=== PATIENT | female | born 1975 | race Caucasian/White ===

== ENCOUNTER 2021-06-08 12:12 | Outpatient (REF) | payer MEDICARE, MEDICAID, SELFPAY ==
--- NOTE | ~2021-06-08 | XR_ITS ---
EXAMINATION: RIGHT HAND. RIGHT SHOULDER. CLINICAL INFORMATION: Pain in right fingers. COMPARISON: None TECHNIQUE: 3 views right hand and 4 views right shoulder. FINDINGS: RIGHT HAND: There is no visible acute fracture, dislocation or subluxation seen. The joint spaces are maintained normal. RIGHT SHOULDER: There is no visible acute fracture, dislocation or subluxation seen. No bony abnormality. The soft tissues are normal. XR/XR hand RT 2V IMPRESSION: Unremarkable right hand exam. Unremarkable right shoulder exam.
--- NOTE | ~2021-06-08 | XR_ITS ---
EXAMINATION: RIGHT HAND. RIGHT SHOULDER. CLINICAL INFORMATION: Pain in right fingers. COMPARISON: None TECHNIQUE: 3 views right hand and 4 views right shoulder. FINDINGS: RIGHT HAND: There is no visible acute fracture, dislocation or subluxation seen. The joint spaces are maintained normal. RIGHT SHOULDER: There is no visible acute fracture, dislocation or subluxation seen. No bony abnormality. The soft tissues are normal. XR/XR shoulder RT min 2V IMPRESSION: Unremarkable right hand exam. Unremarkable right shoulder exam.
== END 2021-06-08 12:13 | disposition home or self-care (01) ==
LOC: HO.HMGCX 12:12
PROVIDERS: PCP Internal Medicine; Visit Provider Internal Medicine
DX: Z13.89 Encounter for screening for other disorder (principal)
CPT/HCPCS: 73030; 73120

== ENCOUNTER 2021-10-11 11:00 | Outpatient (RCR) | payer MEDICARE, MEDICAID, SELFPAY ==
--- NOTE | 2021-06-22 14:03 | MHC.PT.EP ---
[facility] [place] Office [place] Office [place] Office [address] [place] [address] [phone] F: [phone] F: [phone] F: [phone] F: [phone] Physical Therapy Plan of Care Date of Evaluation: Date of Surgery: Diagnosis: pain in R shoulder. Assessment: Patient is a 45 year old R handed female who presents with s/s consistent with R shoulder pain. 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 Patient past medical history includes anxiety and depression. Current impairments include pain, ROM, strength, posture, activity tolerance and functional mobility. Functional limitations include decreased ability to reach, lift, carry, dress, wash, sleep, and perform weight bearing activities.. Patient is motivated with good rehab potential. Skilled PT will address impairments and functional limitations in order to achieve goals. Frequency and Duration: The patient will be seen 2x/week for 5 weeks Short Term Goals: I with HEP - 2 weeks Flex/abd 150 or better pain free - 3 weeks Able to work pain free - 3 weeks improved postural awareness - 3 weeks Intermediate Goals: SPADI 24/130 or better - 5 weeks full AROM pain free - 5 weeks strength 4/5 grossly or better - 5 weeks Treatment Plan: Modalities to reduce pain, spasms and effusion. Manual therapy to restore motion and function. Therapeutic exercise to improve strength and flexibility. Neuromuscular re-education for posture and balance. Therapeutic activities to return to functional activities of daily living. Electronically signed by: Olegario Marti PT Please sign and return to therapist. Thank you for your referral.
--- NOTE | 2021-11-11 08:43 | MHC.PT.DC ---
[facility] [place] Office [place] Office [place] Office [address] Ernestina Jacobs [address] [phone] F: [phone] F: [phone] F: [phone] F: [phone] Physical Therapy Discharge Report Diagnosis: pain in R shoulder. Date of Surgery: Date of Evaluation: 06/22/21 Date of Discharge: 10/12/21 Treatments to Date: 15 Cancellations to Date: 0 No Shows to Date: 0 Discharge Status: Achieved Goals Improved Function Independent with HEP Discharge Summary: Pt conts with some limitation. Still with pain at specific ROM. Pt is I with HEP. Pt uses CP and tylenol when pain is worse. Discussed home TENS unit fro pain management. Pt DC today Electronically signed by: Olegario Marti, PT Please sign and return to therapist. Thank you for your referral.
== END 2021-11-11 08:43 | disposition home or self-care (01) ==
LOC: HO.PTCHIC 11:00
PROVIDERS: PCP Internal Medicine; Visit Provider Internal Medicine
DX: M25.511 Pain in right shoulder (principal)
CPT/HCPCS: 97110; 97140; 97150; 97161

== ENCOUNTER 2022-04-01 10:39 | Outpatient (REF) | payer MEDICARE, MEDICAID, SELFPAY ==
[2022-04-01 13:39] LABS: Appearance Urine HAZY; Color Urine YELLOW; Glucose Urine UA >=1000 MG/DL (NEG); Leukocyte Esterase Urine 2+ (NEG); Nitrite Urine NEG (NEG); UACC Culture Trigger YES; Urine Blood TRACE (NEG); Urine Ketones 5 MG/DL (NEG); Urine Protein NEG (NEG-TRACE)
[2022-04-01 13:55] LABS: Bacteria Urine TRACE /LPF; RBC Urine 0-2 /HPF (0); Squamous Epithelial Cell Urine 1+ /LPF; Trichomonas Urine NOTED
== END 2022-04-01 10:40 | disposition home or self-care (01) ==
LOC: HO.HMGCLNP 10:39
PROVIDERS: Visit Provider Internal Medicine
DX: R30.0 Dysuria (principal)
CPT/HCPCS: 81001; 87086; 87147

== ENCOUNTER 2024-11-12 12:28 | Outpatient (AMB) | payer MEDICARE, MEDICAID, SELFPAY ==
[2024-11-12 12:45] VITALS: BP 124/76; PULSE 78; RESP 20; TEMP 37.3; O2SAT 98; BMI 37.9
--- NOTE | 2024-11-12 12:45 | MHC.PC.OV ---
Vital Signs 11/12/24 12:45 Height 5 ft 6 in Weight 235 lb BMI 37.9 BP 124/76 Blood Pressure Location Lt brachial Position Sitting Respiration 20 Pulse 78 Pulse Source Pulse Oximeter Temp 99.2 F Temp Source Oral Pulse Oximetry (%) 98 Oxygen Delivery Method Room Air Intake Visit Reasons: sore R foot Allergies Sulfa (Sulfonamide Antibiotics) Allergy (Verified 11/12/24 13:07) had reaction when she was a little kid does not remember Medication List - Last Reconciled 11/12/24 by Francisca Bryant MD blood-glucose sensor (Dexcom G6 Sensor device) As directed blood-glucose transmitter (Dexcom G6 Transmitter device) As directed bupropion HCl XL (Wellbutrin XL) 300 mg PO QAM clonazepam 0.5 mg PO DAILY fluoxetine 60 mg PO DAILY fluticasone propionate 50 mcg/actuation 1 spray intranasal DAILY insulin glargine U-300 conc (Toujeo SoloStar U-300 Insulin) 2 units subcut DAILY insulin lispro (Humalog U-100 Insulin) 1 sliding scale dose subcut USEASDIRECTD levothyroxine (Synthroid) 75 mcg PO DAILY methylphenidate HCl mg PO DAILY simvastatin 10 mg PO DAILY trazodone 300 mg PO DAILY Tobacco use date assessed: 11/12/24 Dental Screening Dental Screen Date: 11/12/24 Did you have a dental visit in the last 12 months?: Yes Did you have a dental problem in the last 6 months where you did not have access to dental care?: No Was dental information given to patient?: Patient has dentist HPI HPI Comments History of Present Illness Details Patient presents for physical. She follows up with Endocrinology for type 1 diabetes and reports poorly controlled due to noncompliance with ADA diet and lack of exercise. Patient is established with a psychiatrist and a therapist for chronic depression and anxiety and has been taking medications. [facility] Medical History (Updated 11/12/24 @ 13:35 by Francisca Bryant MD) Shoulder pain, right Pain of right thumb Acquired hypothyroidism Anxiety disorder, unspecified Major depressive disorder, single episode, unspecified Type 1 diabetes Surgical History History of ankle surgery Family History Father No problems noted. Mother Mental health disorder Substance use disorder Social History Housing: Apartment Patient Tobacco Use Status: Never used Tobacco e-Cigarette/Vaping Use: Never Used service: No Current occupational status: employed Cognitive needs: No Hearing needs: No Vision needs: No Questionnaire PHQ-9 Over the last 2 weeks, how often have you been bothered by any of the following problems? 1. Little interest or pleasure in doing things: nearly every day 2. Feeling down, depressed, or hopeless: nearly every day 3. Trouble falling or staying asleep, or sleeping too much: more than half the days 4. Feeling tired or having little energy: nearly every day 5. Poor appetite or overeating: nearly every day 6. Feeling bad about yourself - or that you are a failure or have let yourself or your family down: more than half the days 7. Trouble concentrating on things, such as reading the newspaper or watching television: nearly every day 8. Moving or speaking so slowly that other people could have noticed. Or the opposite - being so fidgety or restless that you have been moving around a lot more than usual: not at all 9. Thoughts that you would be better off or of hurting yourself in some way: several days Total score: 20 Depression Screening Interpretation: Positive (established with psychiatry) Depression Screening Follow-up: Existing condition and In treatment Depression Screening Done: Yes 34731 - PHQ-9 Billing: Yes Source: Developed by Drs. Goran Vyas, Mercedes Higgins, Dereje Baldwin and colleagues, with an educational ashok from [employer]. Thrive Questionnaire Date Thrive assessed: 11/12/24 I am a: Patient What is your living situation today?: I have a steady place to live Within the past 12 months, did the food you bought not last and you didn't have the money to get more?: Never true Within the past 12 months, did you worry whether your food would run out before you got money to buy more?: Never true Do you have trouble paying for medicines?: No Do you have trouble getting transportation to medical appointments?: Yes Do you have trouble paying your heating and electricity bill?: No Do you have trouble taking care of your child, family member or friend?: No Do you have trouble with day-to-day activities such as bathing, preparing meals, shopping, managing finances, etc.?: No Are you currently unemployed and looking for a job?: No Are you interested in more education?: Yes Please select the resources that you would like help with: None Currently or been in a relationship where the following occur: No concerns reported THRIVE Score: 1 AUDIT C Alcohol Use Questionnaire (AUDIT-C) 1. How often do you have a drink containing alcohol?: Never 3. How often do you have six or more drinks on one occasion?: Never Total Score: 0 ABI-7 AMB Questionnaire ABI-7 Date ABI - 7 assessed: 11/12/24 Feeling nervous, anxious, or on edge: 3 = Nearly every day Not being able to stop or control worryin = More than half the days Worrying too much about different things: 2 = More than half the days Trouble relaxin = More than half the days Being so restless that it is hard to sit still: 0 = Not at all Becoming easily annoyed or irritable: 2 = More than half the days Feeling afraid as if something awful might happen: 1 = Several days Total ABI-7 score (0-4 normal; 5-9 mild; 10-14 moderate; 15-21 severe): 12 Source: Developed by Drs. Goran Vyas, Mercedes Higgins, Dereje Baldwin and colleagues, with an educational ashok from [employer]. ABI-7 Assessment Billing ABI-7 Assessment Tool: ABI-7 Assessment 43410 Review of Systems Const All systems reviewed & are unremarkable except as noted in HPI and below Reports no additional complaints Eyes Reports no additional complaints ENT Reports no additional complaints Card Reports no additional complaints Resp Reports no additional complaints GI Reports no additional complaints Reports no additional complaints Musc Reports no additional complaints Physical exam (Primary Care) Vital Signs: Last Vital Signs Temp 99.2 F 11/12/24 12:45 Pulse 78 11/12/24 12:45 Resp 20 11/12/24 12:45 BP 124/76 11/12/24 12:45 Pulse Ox 98 11/12/24 12:45 Oxygen Delivery Method Room Air 11/12/24 12:45 BMI result Body Mass Index 37.9 Tobacco/Smoking Status: Tobacco use Status Tobacco use date assessed 11/12/24 11/12/24 13:04 Patient Tobacco Use Status Never used Tobacco 11/12/24 13:11 e-Cigarette/Vaping Use Never Used 11/12/24 13:11 PHQ-9: PHQ-9 Score PHQ-9: Total score 20 11/12/24 13:29 Depression Screening Interpretation: Positive (established with psychiatry) Depression Screening Follow-up: Existing condition and In treatment Thrive Assessment: Date of Thrive Assessment Date Thrive assessed 11/12/24 11/12/24 13:12 Currently or been in a relationship where the following occur: No concerns reported Const General: no acute distress HENMT Head: Yes normal to inspection Ears: hearing grossly normal bilaterally General nose exam: Normal external nose present Face and sinus: Yes normal facial exam Mouth: Normal oral and palatal mucosa present Throat: Yes posterior oropharynx normal Eyes General: appearance normal, both eyes and all related structures Neck Neck: Yes no lymphadenopathy and Yes supple Resp Effort & Inspection: normal respiratory effort Auscultation: clear to auscultation bilaterally Cardio Rhythm: regular rhythm Heart sounds: S1 normal heart sound present and S2 normal heart sound present GI Inspection: Yes normal to inspection Palpation (GI): Soft to palpation Percussion: Yes normal to percussion Auscultation: normal bowel sounds Coding Level of Care Code Est Pt Prev Care 40-64y(44640) Diagnoses Type 1 diabetes E10.9 Major depressive disorder, single episode, unspecified F32.9 Annual physical exam Z00.00 Additional Codes ABI-7 Assessment Billing - ABI-7 Assessment Tool: ABI-7 Assessment 24803 ([id number]) PHQ-9 - 10731 - PHQ-9 Billing: Yes ([id number]) Assessment & Plan Assessment & Plan (1) Type 1 diabetes: Comment: f/u with charles Swanson Code(s): E10.9 - Type 1 diabetes mellitus without complications Category: Medical Plan: 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 She will obtain results of her most recent blood work and for to our office (2) Major depressive disorder, single episode, unspecified: [facility]): F32.9 - Major depressive disorder, single episode, unspecified Category: Medical Plan: Follow-up with a psychiatrist and a counselor continue current medications (3) Annual physical exam: Code(s): Z00.00 - Encounter for general adult medical examination without abnormal findings Category: Medical Plan: Well-balanced diet regular physical activity weight loss discussed with the patient she was advised to return for fasting blood work mammogram will be scheduled. Patient declined colonoscopy but agreed to Cologuard. She will call her director epidemiology to schedule pelvic exam appointment Orders: Orders Comprehensive [place]. Panel Fast Today E10.9 - Type 1 diabetes mellitus without complications, Z00.00 - Encounter for general adult medical examination without abnormal findings Complete Blood Count Auto Diff Today E10.9 - Type 1 diabetes mellitus without complications, Z00.00 - Encounter for general adult medical examination without abnormal findings MM screening mammo BI Today Z12.31 - Encounter for screening mammogram for malignant neoplasm of breast Lipid Panel Today E10.9 - Type 1 diabetes mellitus without complications, Z00.00 - Encounter for general adult medical examination without abnormal findings Microalbumin, Random (w Creat) Today E10.9 - Type 1 diabetes mellitus without complications, Z00.00 - Encounter for general adult medical examination without abnormal findings Vitamin D 25-OH Total Today E10.9 - Type 1 diabetes mellitus without complications, Z00.00 - Encounter for general adult medical examination without abnormal findings Hemoglobin A1c Today E10.9 - Type 1 diabetes mellitus without complications, Z00.00 - Encounter for general adult medical examination without abnormal findings Referrals Cologuard Test Z12.11 - Encounter for screening for malignant neoplasm of colon, Z12.12 - Encounter for screening for malignant neoplasm of rectum
--- OUTSIDE RECORDS SUMMARY | 2024-11-12 15:17 | XMS_ITS | Patient Health Record ---
Author Organization [facility] Address [address] [place] [address] Care Team Providers Care Relationship Advisor Name Role Phone Jie Larsen Unavailable [phone] Reason For Referral No Information Medications Medication SIG (Take, Route, Fr equency, Duration) Notes Start Date End Date Status Adderall 20MG 1 ORAL twice daily for -3 [facility] 12/10/2013 Active Calcium 600MG 1 ORAL daily for - [facility] 12/10/2013 Active Fish Oil 1200MG 1 ORAL daily for -3 [facility] 12/10/2013 Active FLUoxetine HCl 60MG 1 ORAL daily for -3 [facility] 12/10/2013 Active Multivitamins 1 ORAL daily for -3 [facility] 12/10/2013 Active Synthroid 175 MCG 1 ORAL daily for - [facility] 12/10/2013 Active traZODone HCl 150MG 1 ORAL at bedtime for - [facility] 12/10 Active Problems Problem Type SNOMED Code ICD Code Onset Dates Problem Status W/U Status Risk Notes Problem Hypothyroidism (13526023) Unspecified hypothyroidism (244.9) Active confirmed Major Problem Type I diabetes mellitus without complication (022193527) Diabetes mellitus without mention of complication, type I [juvenile type], not stated as uncontrolled (250.01) Active confirmed Major Problem Premenstrual tension syndrome (44895451) Premenstrual tension syndromes (625.4) Active confirmed Diag Problem Atypical glandular cells on cervical Papanicolaou smear (229546562) Abnormal glandular Papanicolaou smear of cervix (795.00) Active confirmed Major Problem Gynecological examination normal (582311940611804) Routine gynecological examination (V72.31) Active confirmed Major Plan Of Treatment No Information Insurance Providers Payer Name Payer Address Payer Phone Subscriber Number Group Number Insured Name Patient Relationship to Insured Coverage Start Date Coverage End Date MEDICARE [address] [place], [place] [id number] MOIRA VALDEZ Self - patient is the insured
--- OUTSIDE RECORDS SUMMARY | 2024-11-12 15:17 | XMS_ITS | Data Portability ---
Author Organization [facility], , [facility] Address [address] [place] [address] Care Team Providers Care Life Management Teacher Name Role Phone SAMIRA SCHMITT Building Carpenter Helper BENNY GUNN Wick Tender EDER ANDREW Primary Care Provider [phone] Assessment Encounter Date Assessment Date Assessment LastModified by Organization Details LastModified Time 09/07/2022 09/07/2022 T1DM on basal bolus with CGM (Dexcom). Started at age 2. A1c generally in target but has had fairly wide fluctuations in glucose values (hpo to hyper) 2020: More frequent lows but also hyperglyemia. Hypothyroid on Synthroid replacement Anxiety- adjusting meds. Depression- more of a problem lately (12.). 11 Levemir at HS CGM shows lows o/n but some highs then too. Using novalog at meals.. CGM report DATES: 08/08-09/06/22 AVG GLU: 135 +/- 62 with CV= 45.8% Time in range: 62% Time high: 23% Time low: 15% GENERAL PATTERN: Average glucose is 110 between MN and 2:30AM. Values increase to 150mg/dl at 5:30AM and to 180mg/dl at 8AM. There is a decrease in average glucose to 150mg/dl at 8:30AM arriving at 110mg/dl at 2:30PM. Values slowly rise to 150mg/dl by 9:30PM and then decrease back to 110mg/dl by 11:30PM. INDIVIDUAL DAYS: Multiple instances of highs in morning (6-7AM), midday (3PM) and also overnight (1-3AM). There are also numerous prolonged episodes of hypoglycemia occurring mostly overnight with shorter episodes scattered at other times of day. IMPRESSION: Sub-optimal control of diabetes with 62 % of time in range but a high percent time in hypoglycemia and some time (23%) in hyperglycemia. RECOMMENDATION: Decrease long-acting insulin to reduce risk of hypoglycemia and review dosing for meals to allow proper coverage without resulting in post-meal hypoglycemia. PRIOR CGM: 08/17/21-09/16/21 IMPRESSION: Highly variable control throughout control although overall, pt. is in range over 60% of the time. Most severe hyperglycemia after midnight. Lows tend to occur after meals with pattern of highs resulting in lows that result in rebound highs. RECOMMENDATION: Address hyperglycemia beginning around MN. May be able to use less short acting at other times of day. PREVIOUS CGM: 02/09-03/10/21: Highs overnight- mostly from rebound hypoglycemia but occasionally without. PREVIOUS CGM:07/28/20- 08/26/20 IMPRESSION: Moderately well controlled diabetes wtih 59 % of time in range. Of concern is the 13% of time that is spent in hypoglcyemia. Hyperglycemia largely occurs overnight and in response to either borderline hypoglycemia or more well-defined hypoglycemia after dinner. Given the borerline level of some of the lows, this may represent overcompensation for fear of impending severe hypoglcyemia. RECOMMENDATION: Choices are to either have a post-dinner snack or reduce insulin (likely small changes to short-acting and long-acting). Additional efforts to discuss responses to hypoglycemia would be advised. Enhanced Provider time spent performing enhanced activities which may include, but are not limited to: reviewing tests, obtaining and/or reviewing patient history; ordering medications, test or procedures; EMR documentation; communication with patient, family, caregiver(s), VNA; pre-visit prep time communication with specialists, ER staff. Time spent: 39 (minutes) 09/07 but added complexity due hypoglycemia. Patient checks sugars more than 4x per day and injects insulin four times daily. Makes adjustments in insulin doses based on blood sugar values. There is a current and ongoing significant concern for the this patient's risk for severe hypoglycemia causing serious health consequences. Complexity increased by use of insulin, documented hypoglycemia. 09/07: Labs pending. CGM shows lows o/n. Change levemir 11 -> 8 units at HS. Try to use bit more novolog at dinner (6-8 units). Continue 7 units at bkfst (BG go up after caffeine). upload CGM and review in about early 11/09. [email or web address] Not available 09/07/2022 22:15:26 02/15/2023 02/15/2023 T1DM on basal bolus with CGM (Dexcom). Started at age 2. A1c generally in target but has had fairly wide fluctuations in glucose values (hpo to hyper) 2020: More frequent lows but also hyperglyemia. Hypothyroid on Synthroid replacement Anxiety- adjusting meds. Depression- more of a problem lately (12.). 11 Levemir at HS CGM shows lows o/n but some highs then too. Using Novolog at meals.. CGM report DATES: 12/11/22- 02/09/23 AVG GLU: 137 mg/dl +/- 66; CV= 48% Time in range: 66% was 57% Time high: 22% was 31% Time low: 12% was 12% CGM use= 51%; was 31% GENERAL PATTERN: While average value is within the target range throughout the 24 hour period, there are frequent times with excess hypoglycemia and periods of hyperglycemia. Lows tend to be more frequent overnight (MN till 9AM) with slightly less but still frequent trends after lunch and after dinner. However, high values over 250 are common after breakfast and, to a lesser degree, after dinner. In general, average values decrease from MN until 3AM and then rise to about 170mg/dl by noon. Values decrease to 120-130 by 3PM and hover in that range for rest of day. INDIVIDUAL DAYS: Lows overnight are noted both with and without prior hyperglycemia. During day, lows tend to follow mealtimes but not with excessively high prior hyperglycemia. The times when glucose values rise very high do not correspond with the lowest glucose values or most prolonged hypoglycemia. IMPRESSION: Sub-optimal control of diabetes due more to excess amounts of hypoglycemia than hyperglycemia. Average time in range is 66%. Lows are often present overnight and also following mealtimes, suggesting excess doses for meals rather than excess corrections. High values occur intermittently, mostly after breakfast. RECOMMENDATION: Review long acting dose to avoid lows overnight. Some increase may be needed around breakfast. First priority would be to lower the frequency of hypoglycemia. PRIOR CGM: IMPRESSION: Sub-optimal control of diabetes with 62 % of time in range but a high percent time in hypoglycemia and some time (23%) in hyperglycemia. RECOMMENDATION: Decrease long-acting insulin to reduce risk of hypoglycemia and review dosing for meals to allow proper coverage without resulting in post-meal hypoglycemia. PRIOR CGM: 08/17/21-09/16/21 IMPRESSION: Highly variable control throughout control although overall, pt. is in range over 60% of the time. Most severe hyperglycemia after midnight. Lows tend to occur after meals with pattern of highs resulting in lows that result in rebound highs. RECOMMENDATION: Address hyperglycemia beginning around MN. May be able to use less short acting at other times of day. PREVIOUS CGM: 02/09-03/10/21: Highs overnight- mostly from rebound hypoglycemia but occasionally without. PREVIOUS CGM:07/28/20- 08/26/20 IMPRESSION: Moderately well controlled diabetes wtih 59 % of time in range. Of concern is the 13% of time that is spent in hypoglcyemia. Hyperglycemia largely occurs overnight and in response to either borderline hypoglycemia or more well-defined hypoglycemia after dinner. Given the borerline level of some of the lows, this may represent overcompensation for fear of impending severe hypoglcyemia. RECOMMENDATION: Choices are to either have a post-dinner snack or reduce insulin (likely small changes to short-acting and long-acting). Additional efforts to discuss responses to hypoglycemia would be advised. Enhanced Provider time spent performing enhanced activities which may include, but are not limited to: reviewing tests, obtaining and/or reviewing patient history; ordering medications, test or procedures; EMR documentation; communication with patient, family, caregiver(s), VNA; pre-visit prep time communication with specialists, ER staff. Time spent: 42 (minutes) 03/09 but added complexity due hypoglycemia (in office). Patient checks sugars more than 4x per day and injects insulin four times daily. Makes adjustments in insulin doses based on blood sugar values. There is a current and ongoing significant concern for the this patient's risk for severe hypoglycemia causing serious health consequences. Complexity increased by use of insulin, documented hypoglycemia. 09/07: Labs pending. CGM shows lows o/n. Change levemir 11 -> 8 units at HS. Try to use bit more novolog at dinner (6-8 units). Continue 7 units at bkfst (BG go up after caffeine). 03/09 decrease levemir by 3 units- [email or web address] Not available 03/13/2023 09:07:14 09/13/2023 09/13/2023 T1DM on basal bolus with CGM (Dexcom). Started at age 2. A1c generally in target but has had fairly wide fluctuations in glucose values (hpo to hyper) 2020: More frequent lows but also hyperglyemia. Hypothyroid on Synthroid replacement Anxiety- adjusting meds. Depression- more of a problem lately (09.06). 11 Levemir at HS CGM shows lows o/n but some highs then too. Using Novolog at meals.. CGM report DATES: 08/08/23-09/06/23; tracings are available for 20 out of 30 days (67%) AVG GLU: 156 with standard deviation of 78 mg/DL and coefficient of variation = 50.2% Time in range: 56% Time high: 32% Time low: 12% GENERAL PATTERN: Average glucose is out of range between 4 AM and 9 AM. The average at midnight is approximately 100-110 mg/DL and gradually increases to approximately 150 x 3 a.m. with a sharper increase peaking at 250 at 6:30 AM. Values then come down and returned to approximately 120 x 11 a.m. After a brief rise to 150-160 by 12:30 PM, values decrease and hover around 140-150 from 3 PM until 5:30 PM. Values then rise to 150-160 from 7-9 PM before decreasing back towards 110-120 by midnight. It should be noted that there is a wide variability of glucose values throughout the 24 hour period but this is most significant between 2 AM and 10 AM. In addition, there are are significant percentages of hypoglycemia through most of the hours between 1 PM and 5 AM. INDIVIDUAL DAYS: Multiple instances of hyperglycemia occurring overnight. While many of these are associated with low values between midnight and 2 AM, there are other instances of no hypoglycemia with a fairly rapid rise in glucose values. Other instances of hypoglycemia are seen in the afternoon and evening, but several of these also peer to be reactive to bouts of hypoglycemia. Hypoglycemia is noted on multiple occasions with prolonged episodes of 2-3 hours most commonly occurring overnight. However, there are additional instances occurring in the late afternoon and evening. IMPRESSION: Poor control of diabetes as evidenced by only 56% of the time spent in range but, importantly, 14% of the time is spent with values over 250 and 12% of the time is spent with hypoglycemia. Numerous episodes of hypoglycemia overnight which seem out of proportion to the hypoglycemic events during that interval. Additional hypoglycemia is noted in the afternoon and evening. RECOMMENDATION: Given frequency of hypoglycemia, first priority would be to reduce the frequency and duration of these events. Lowering basal insulin may be helpful. However, additional increases in short acting insulin at meals may be necessary. Careful review of nighttime eating habits if hypoglycemia overnight persist. PRIOR CGM: 12/11/22- 02/09/23 IMPRESSION: Sub-optimal control of diabetes due more to excess amounts of hypoglycemia than hyperglycemia. Average time in range is 66%. Lows are often present overnight and also following mealtimes, suggesting excess doses for meals rather than excess corrections. High values occur intermittently, mostly after breakfast. RECOMMENDATION: Review long acting dose to avoid lows overnight. Some increase may be needed around breakfast. First priority would be to lower the frequency of hypoglycemia. PRIOR CGM: IMPRESSION: Sub-optimal control of diabetes with 62 % of time in range but a high percent time in hypoglycemia and some time (23%) in hyperglycemia. RECOMMENDATION: Decrease long-acting insulin to reduce risk of hypoglycemia and review dosing for meals to allow proper coverage without resulting in post-meal hypoglycemia. PRIOR CGM: 08/17/21-09/16/21 IMPRESSION: Highly variable control throughout control although overall, pt. is in range over 60% of the time. Most severe hyperglycemia after midnight. Lows tend to occur after meals with pattern of highs resulting in lows that result in rebound highs. RECOMMENDATION: Address hyperglycemia beginning around MN. May be able to use less short acting at other times of day. PREVIOUS CGM: 02/09-03/10/21: Highs overnight- mostly from rebound hypoglycemia but occasionally without. PREVIOUS CGM:07/28/20- 08/26/20- Moderately well controlled diabetes wtih 59 % of time in range. 13% of time that is spent in hypoglcyemia. Enhanced Provider time spent performing enhanced activities which may include, but are not limited to: reviewing tests, obtaining and/or reviewing patient history; ordering medications, test or procedures; EMR documentation; communication with patient, family, caregiver(s), VNA; pre-visit prep time communication with specialists, ER staff. Time spent: 39 (minutes) 09/08 but added complexity due hypoglycemia (in office). Patient checks sugars more than 4x per day and injects insulin four times daily. Makes adjustments in insulin doses based on blood sugar values. There is a current and ongoing significant concern for the this patient's risk for severe hypoglycemia causing serious health consequences. Complexity increased by use of insulin, documented hypoglycemia. 09/07: Labs pending. CGM shows lows o/n. Change levemir 11 -> 8 units at HS. Try to use bit more novolog at dinner (6-8 units). Continue 7 units at bkfst (BG go up after caffeine). 03/09 decrease levemir by 3 units- 09/08: Decrease levemir from 7 units to 5 units (10PM) to reduce lows. Then will want to see if highs persisting overnight. F/U ENDO RN in 4-6 weeks. [email or web address] Not available 09/15/2023 12:48:56 01/10/2024 01/10/2024 T1DM on basal bolus with CGM (Dexcom). Started at age 2. A1c generally in target but has had fairly wide fluctuations in glucose values (hpo to hyper) 2020: More frequent lows but also hyperglyemia. Hypothyroid on Synthroid replacement Anxiety- adjusting meds. Depression- more of a problem lately (.). 11 Levemir at HS CGM shows lows o/n but some highs then too. Using Novolog at meals.. CGM report DATES: 12/12/23-01/10/24 AVG GLU: 156 mg/DL with standard deviation of 72 mg/DL and coefficient of variation = 46.4%. CGM was active 98.8% of the time. Time in range: 56% Time high: 34% Time low: 10% GENERAL PATTERN: Average glucose is in the target range except for 7 AM until noon. The average at midnight is approximately 110-120 and decreases down towards about 100 x 2 a.m. After that, the average increases steadily and reach his 180 by 1 PM but then continues up to approximately 220-230 between 830 and 11 AM. After that, values decrease towards 130-140 between 2 PM and 4 PM and then decrease to a level of 100 at 6:30 PM. Values then increase to approximately 140-150 between 9 PM 11 PM before decreasing back towards 120 by midnight. There is significant amounts of hypoglycemia overnight but also in the afternoon (1-4 PM) and evening (5 PM until midnight). There is significant variability throughout much of the 24 hour interval but particularly between 8 PM and 3 AM and even more so between 3 AM and 10 AM. INDIVIDUAL DAYS: Of significance, there are multiple hypoglycemic events noted; most of these occur in the afternoon and evening but some can persist overnight. Many of these are fairly prolonged. While some of these seem to occur in response to hyperglycemia there are many others are occurring after either minimal hyperglycemia or without evidence of prior hyperglycemia. Elevated glucose values tend to occur more often in the morning and in the evening. Morning values tend to be more prolonged and with higher values exceeding 250-300 mg/DL. Some hypoglycemia occurs following hypoglycemia. IMPRESSION: Suboptimal control of diabetes with 56% of the time spent in the target range. Significant hypoglycemia is noted and occurs in the afternoon and evening but can persist overnight. Hyperglycemia tends to happen more in the morning. Some hyperglycemia appears to be rebound from hypoglycemia. RECOMMENDATION: High-priority to reducing hypoglycemia. A reduction and long-acting insulin is appropriate. A review of dietary choices and preferences for breakfast may also be worthwhile. PRIOR: 08/08/23-09/06/23; tracings are available for 20 out of 30 days (67%) IMPRESSION: Poor control of diabetes as evidenced by only 56% of the time spent in range but, importantly, 14% of the time is spent with values over 250 and 12% of the time is spent with hypoglycemia. Numerous episodes of hypoglycemia overnight which seem out of proportion to the hypoglycemic events during that interval. Additional hypoglycemia is noted in the afternoon and evening. RECOMMENDATION: Given frequency of hypoglycemia, first priority would be to reduce the frequency and duration of these events. Lowering basal insulin may be helpful. However, additional increases in short acting insulin at meals may be necessary. Careful review of nighttime eating habits if hypoglycemia overnight persist. PRIOR CGM: 12/11/22- 02/09/23 IMPRESSION: Sub-optimal control of diabetes due more to excess amounts of hypoglycemia than hyperglycemia. Average time in range is 66%. Lows are often present overnight and also following mealtimes, suggesting excess doses for meals rather than excess corrections. High values occur intermittently, mostly after breakfast. RECOMMENDATION: Review long acting dose to avoid lows overnight. Some increase may be needed around breakfast. First priority would be to lower the frequency of hypoglycemia. PRIOR CGM: IMPRESSION: Sub-optimal control of diabetes with 62 % of time in range but a high percent time in hypoglycemia and some time (23%) in hyperglycemia. RECOMMENDATION: Decrease long-acting insulin to reduce risk of hypoglycemia and review dosing for meals to allow proper coverage without resulting in post-meal hypoglycemia. PRIOR CGM: 08/17/21-09/16/21 IMPRESSION: Highly variable control throughout control although overall, pt. is in range over 60% of the time. Most severe hyperglycemia after midnight. Lows tend to occur after meals with pattern of highs resulting in lows that result in rebound highs. RECOMMENDATION: Address hyperglycemia beginning around MN. May be able to use less short acting at other times of day. PREVIOUS CGM: 02/09-03/10/21: Highs overnight- mostly from rebound hypoglycemia but occasionally without. PREVIOUS CGM:07/28/20- 08/26/20- Moderately well controlled diabetes wtih 59 % of time in range. 13% of time that is spent in hypoglcyemia. Patient checks sugars more than 4x per day and injects insulin four times daily. Makes adjustments in insulin doses based on blood sugar values. There is a current and ongoing significant concern for the this patient's risk for severe hypoglycemia causing serious health consequences. Complexity increased by use of insulin, documented hypoglycemia. 09/07: Labs pending. CGM shows lows o/n. Change levemir 11 -> 8 units at HS. Try to use bit more novolog at dinner (6-8 units). Continue 7 units at bkfst (BG go up after caffeine). 03/09 decrease levemir by 3 units- 09/08: Decrease levemir from 7 units to 5 units (10PM) to reduce lows. Then will want to see if highs persisting overnight. F/U ENDO RN in 4-6 weeks. 01/08: Decrease long-acting. changing levemir to lantus. [email or web address] Not available 01/11/2024 11:59:42 07/24/2024 07/24/2024 T1DM on basal bolus with CGM (Dexcom). Started at age 2. A1c generally in target but has had fairly wide fluctuations in glucose values (hpo to hyper) 2020: More frequent lows but also hyperglyemia. Hypothyroid on Synthroid replacement Anxiety- adjusting meds. Depression- more of a problem lately (09.06). 11 Levemir at HS CGM shows lows o/n but some highs then too. Using Novolog at meals.. CGM report 08/10: No CGM today PRIOR CGM: 08/08/23-09/06/23; IMPRESSION: Poor control of diabetes as evidenced by only 56% of the time spent in range but, importantly, 14% of the time is spent with values over 250 and 12% of the time is spent with hypoglycemia. Numerous episodes of hypoglycemia overnight which seem out of proportion to the hypoglycemic events during that interval. Additional hypoglycemia is noted in the afternoon and evening. RECOMMENDATION: Given frequency of hypoglycemia, first priority would be to reduce the frequency and duration of these events. Lowering basal insulin may be helpful. However, additional increases in short acting insulin at meals may be necessary. Careful review of nighttime eating habits if hypoglycemia overnight persist. PRIOR CGM: 12/11/22- 02/09/23 IMPRESSION: Sub-optimal control of diabetes due more to excess amounts of hypoglycemia than hyperglycemia. Average time in range is 66%. Lows are often present overnight and also following mealtimes, suggesting excess doses for meals rather than excess corrections. High values occur intermittently, mostly after breakfast. RECOMMENDATION: Review long acting dose to avoid lows overnight. Some increase may be needed around breakfast. First priority would be to lower the frequency of hypoglycemia. PRIOR CGM: IMPRESSION: Sub-optimal control of diabetes with 62 % of time in range but a high percent time in hypoglycemia and some time (23%) in hyperglycemia. RECOMMENDATION: Decrease long-acting insulin to reduce risk of hypoglycemia and review dosing for meals to allow proper coverage without resulting in post-meal hypoglycemia. PRIOR CGM: 08/17/21-09/16/21 IMPRESSION: Highly variable control throughout control although overall, pt. is in range over 60% of the time. Most severe hyperglycemia after midnight. Lows tend to occur after meals with pattern of highs resulting in lows that result in rebound highs. RECOMMENDATION: Address hyperglycemia beginning around MN. May be able to use less short acting at other times of day. PREVIOUS CGM: 02/09-03/10/21: Highs overnight- mostly from rebound hypoglycemia but occasionally without. PREVIOUS CGM:07/28/20- 08/26/20- Moderately well controlled diabetes wtih 59 % of time in range. 13% of time that is spent in hypoglcyemia. Enhanced Provider time spent performing enhanced activities which may include, but are not limited to: reviewing tests, obtaining and/or reviewing patient history; ordering medications, test or procedures; EMR documentation; communication with patient, family, caregiver(s), VNA; pre-visit prep time communication with specialists, ER staff. Time spent: 39 (minutes) 08/10 scared of change- affects issues around thinking about pump. Patient checks sugars more than 4x per day and injects insulin four times daily. Makes adjustments in insulin doses based on blood sugar values. There is a current and ongoing significant concern for the this patient's risk for severe hypoglycemia causing serious health consequences. Complexity increased by use of insulin, documented hypoglycemia. 09/07: Labs pending. CGM shows lows o/n. Change levemir 11 -> 8 units at HS. Try to use bit more novolog at dinner (6-8 units). Continue 7 units at bkfst (BG go up after caffeine). 03/09 decrease levemir by 3 units- 09/08: Decrease levemir from 7 units to 5 units (10PM) to reduce lows. Then will want to see if highs persisting overnight. F/U CHRIS RN in 4-6 weeks. 08/10: Meter unclear. Pt reports was 400 o/n. thinks took 8 units- woke up at 115. was 84 at office and then 46. Hasn't been using Lantus. Try toujeo: Free Style strips #50. Hope to get to G7 eventually. right now G6 OK. encourage G7. toujeo 6 units. novolog as you've been doing. f/u brit- see how she's doing. dad has alopecia. Check androgen levels. [email or web address] Not available 07/28/2024 10:04:25 Plan of Treatment Reminders Order Date Submit Date Provider Last Modified By Organization Details Last Modified Time Details Appointments LAB Follow -Up 2024 02:15P M [facility] Lab Not available Not available Not available Follow Up, 60 2024 02:30P M Brit Murphy RN, BSN, [facility] Not available Not available Not available Follow Up, 40 2024 02:00P M Benny Gunn MD Not available Not available Not available Lab HbA1c (hemog lobin A1c), blood 2023 024 [facility], [address] [place] [address], [id number], 10/13/2024 14:04:58 CMP, serum or plasma 2023 024 [facility], [address] [place] [address], [id number], 10/13/2024 14:04:59 lipid panel, serum 2023 024 [facility], [address] [place] [address], [id number], 10/13/2024 14:04:59 microa lbumin /creat inine, ratio panel, urine 2023 024 [email or web address] n [facility], [address] [place] [address], [id number], 07/24/2024 17:29:14 TSH, serum or plasma 2023 024 [facility], [address] [place] [address], [id number], 10/13/2024 14:04:59 T4, free, serum 2023 024 [facility], [address] [place] [address], [id number], 10/13/2024 14:04:59 HbA1c (hemog lobin A1c), blood 2022 023 [facility] [address] [place] [address], [id number], 09/14/2023 10:07:11 CMP, serum or plasma [address] [facility], [address] [place] [address], [id number], 09/14/2023 09:36:05 lipid panel, serum [address] [facility], [address] [place] [address], [id number], 09/14/2023 09:32:42 microa lbumin /creat inine, ratio panel, urine [address] [facility], [address] [place] [address], [id number], 09/14/2023 09:32:40 lipid panel, serum [address] [facility], [address] [place] [address], [id number], 07/24/2024 15:56:32 CMP, serum or plasma [address] [facility], [address] [place] [address], [id number], 07/24/2024 15:56:31 HbA1c (hemog lobin A1c), blood [address] [facility], [address] [place] [address], [id number], 07/24/2024 15:43:59 TSH, serum or plasma [address] [facility], [address] [place] [address], [id number], 09/14/2023 11:43:34 T4, free, serum [address] [facility], [address] [place] [address], [id number], 09/14/2023 11:26:55 T4, free, serum [address] [facility], [address] [place] [address], [id number], 07/24/2024 15:38:25 TSH, serum or plasma [address] [facility], [address] [place] [address], [id number], 07/24/2024 16:13:46 HbA1c (hemog lobin A1c), blood [address] [facility], [address] [place] [address], [id number], 02/16/2023 10:30:16 microa lbumin , urine [facility] [address] [place] [address], [id number], 02/19/2023 15:09:41 lipid panel, serum [address] [facility], [address] [place] [address], [id number], 02/19/2023 12:20:58 CMP, serum or plasma [address] [facility], [address] [place] [address], [id number], 02/19/2023 12:20:57 TSH, serum or plasma [address] [facility], [address] [place] [address], [id number], 02/16/2023 11:53:23 T4, free, serum [address] [facility], [address] [place] [address], [id number], 02/16/2023 11:25:53 Referral None record ed. Procedures None record ed. Surgeries None record ed. Imaging None record ed. Medication Orders Agnes Cardenas ar U-300 Insuli n 300 unit/m L (1.5 mL) subcut aneous pen 2023 024 [id number], [address] [place] [address], [id number], 07/28/2024 10:05:49 Lantus Solost ar U-100 Insuli n 100 unit/m L (3 mL) subcut aneous pen 2023 024 [facility] #[id number], [address] [place] [address], [id number], 07/24/2024 15:19:06 Novolo g FlexPe n U-100 Insuli n aspart 100 unit/m L (3 mL) subcut aneous [address] [facility][id number], [address] [place] [address], [id number], 07/24/2024 13:35:58 FreeSt yle Lite Strips 2023 024 [email or web address] n [facility] #[id number], [address] [place] [address], [id number], 01/10/2024 17:53:18 Novolo g U-100 Insuli n aspart 100 unit/m L subcut aneous soluti on 2021 [address] [id number], [address] [place] [address], [id number], 07/24/2024 13:36:04 Levemi r U-100 Insuli n 100 unit/m L subcut aneous soluti on 2021 [address] [id number], [address] [place] [address], [id number], 07/24/2024 13:34:34 Patient TargetsNo targets recorded. Patient Instructions Encounter Date Encounter Id Patient Instructions Last Modified By Organization Details Last Modified Time 09/07/2022 [id number] - Get labs done as ordered - Continue to monitor your blood sugars as directed - Follow a healthy diet - Try and be as physically active as you can - Decrease levemir to 8 units at night - Use 1-2 units more of Novolog at dinner. - Upload CGM for review at september. - Take simvastatin at bedtime (OK to take with trazadone). [email or web address] Not available 09/07/2022 22:12:37 6+ months/ 40 minutes. Also set up visit for 3 months after that visit please. Not available 09/06/2022 16:59:20 02/15/2023 [id number] - Get labs done as ordered - Continue to monitor your blood sugars as directed - Follow a healthy diet - Try and be as physically active as you can - Decrease levemir to 8 units at night - Use 1-2 units more of Novolog at breakfast and lunch once Dexcom shows you are not having as many lows overnight. - Upload CGM for review in one month. - Stay on simvastatin at bedtime [email or web address] Not available 03/13/2023 09:13:27 6+ months/ 40 minutes. Also set up visit for 3 months after that visit please. Not available 02/13/2023 11:35:52 09/13/2023 [id number] - Get labs done as ordered - Continue to monitor your blood sugars as directed - Follow a healthy diet - Try and be as physically active as you can - Decrease levemir to 5 units at night - Use 2 units more of Novolog at breakfast and lunch once Dexcom shows you are not having as many lows overnight. - Upload CGM at nurse visit to review in 2 months. - Stay on simvastatin at bedtime [email or web address] Not available 09/13/2023 14:55:12 6+ months/ 40 minutes. Also set up visit for ENDO RN visit in 2 months. [email or web address] Not available 09/13/2023 14:55:23 01/10/2024 [id number] 1.)- Novolog 5 - 10 units up to 5 times daily with meals and snacks 2.)- Change to Lantus 5 units (may decrease to 4 units if still having lows) from Levemir -7 units 3.) - Reviewed insuln pump options - T- slim, Omnipod, Ilet - Beta Bionic ( pt interested in Ilet- hand out given for pt to re search) 4.)- Reviewed signs and symptoms of hypoglycemia - reviewed how/when to treat ? pt aware - drinks Leyda sun and repeats after 15 minutes if not going up. Advised protein follow up 5.)- Labs today [email or web address] Not available 01/11/2024 12:01:07/24/2024 [id number] - Get labs done as ordered - Continue to monitor your blood sugars as directed - Follow a healthy diet - Try and be as physically active as you can - Try Toujeo at 6 units per day - Use Novolog as you have been doing - Upload CGM at nurse visit to review in 2 months. - Stay on simvastatin at bedtime [email or web address] Not available 07/28/2024 10:08:10 6+ months/ 40 minutes. Visit with Brit Murphy [email or web address] Not available 07/28/2024 10:08:32 Reason for Referral None Reported. Results Created Date Observation Date Name Description Value Unit Range Abnormal Flag Note LastModifiedBy Organization Detail LastModifiedTime 09/07/20 22 09/07/2022 HGB A1C hemoglobin A1C 6.3 % 4.8-6. 0 high Goal: <7% in Patie nts with Diabe izaiah An A1c betwe en 5.7-6 .4% is ident ified as pre-d iabet es and sugge sts risk for progr essio n to diabe izaiah Two a1c value s of 6.5% or highe r is consi stent with a diagn osis of diabe izaiah but may need furth er confi rmati on Not Available [address], [address], 09/07/2022 14:36:28 09/07/20 22 09/07/2022 HGB A1C estimated average glucose 134.1 mg/dL Not Available [address], 66796, 09/07/2022 14:36:28 09/07/20 22 09/07/2022 MICRO ALBUM IN/CR EATIN INE RATIO PANEL , URINE microalbumin 3.3 mg/L 1.3-20 .0 Not Available [address], 25951, 09/07/2022 15:33:51 09/07/20 22 09/07/2022 MICRO ALBUM IN/CR EATIN INE RATIO PANEL , URINE creatinine urine 43.7 mg/dL 30.0-1 25.0 Not Available [address], 42732, 09/07/2022 15:33:51 09/07/20 22 09/07/2022 MICRO ALBUM IN/CR EATIN INE RATIO PANEL , URINE microalb/cre at ratio 7.6 mg/g_ creat 0.0-29 .0 Not Available [address], 80679, 09/07/2022 15:33:51 09/07/20 22 09/08/2022 COMP. METAB OLIC PANEL glucose 162 mg/dL 70-100 high Not Available [address], 30056, 09/08/2022 10:11:22 09/07/20 22 09/08/2022 COMP. METAB OLIC PANEL BUN 11 mg/dL 7-18 Not Available [address], 32101, 09/08/2022 10:11:22 09/07/20 22 09/08/2022 COMP. METAB OLIC PANEL creatinine 0.9 mg/dL 0.8-1. 3 Not Available [address], 60246, 09/08/2022 10:11:22 09/07/20 22 09/08/2022 COMP. METAB OLIC PANEL B/C 12.2 ratio Not Available [address], 68270, 09/08/2022 10:11:22 09/07/20 22 09/08/2022 COMP. METAB OLIC PANEL GFR >=60ML /MIN mL/mi n normal >=60m L/min - Ning l or midly reduc ed <60mL /min- Decre ased kidne y funct ion <15mL /min - Kidne y failu re [facility] calcu lates estim ated Glome rular Filtr ation Rate (eGFR ) using the Chron ic Kidne y Disea se Epide miolo gy Colla borat ion (CKD- EPI) Equat ion (Inke r et. al 2020) as recom chidi d by the Natio nal Kidne y Found ation . eGFR is based on age, serum creat inine , and sex. CKD-E PI does not calcu late eGFR by race, does not apply to child ty (age <18 years ), and shoul d not be used in pregn beena. Not Available [address], 59824, 09/08/2022 10:11:22 09/07/20 22 09/08/2022 COMP. METAB OLIC PANEL sodium 140 mmol/ L 136-14 5 Not Available [address], 34754, 09/08/2022 10:11:22 09/07/20 22 09/08/2022 COMP. METAB OLIC PANEL potassium 4.5 mmol/ L 3.5-5. 1 Not Available [address], 31954, 09/08/2022 10:11:22 09/07/20 22 09/08/2022 COMP. METAB OLIC PANEL chloride 101 mmol/ L 96-107 Not Available [address], 63149, 09/08/2022 10:11:22 09/07/20 22 09/08/2022 COMP. METAB OLIC PANEL anion gap 10.3 5.0-15 .0 Not Available [address], 33859, 09/08/2022 10:11:22 09/07/20 22 09/08/2022 COMP. METAB OLIC PANEL CO2 29 mmol/ L 21-32 Not Available [address], 71962, 09/08/2022 10:11:22 09/07/20 22 09/08/2022 COMP. METAB OLIC PANEL calcium 9.0 mg/dL 8.5-10 .3 Not Available [address], 97239, 09/08/2022 10:11:22 09/07/20 22 09/08/2022 COMP. METAB OLIC PANEL total protein 7.5 g/dL 6.4-8. 2 Not Available [address], 99708, 09/08/2022 10:11:22 09/07/20 22 09/08/2022 COMP. METAB OLIC PANEL albumin 3.8 g/dL 3.4-5. 0 Not Available [address], 17283, 09/08/2022 10:11:22 09/07/20 22 09/08/2022 COMP. METAB OLIC PANEL globulin 3.7 g/dL Not Available [address], 63693, 09/08/2022 10:11:22 09/07/20 22 09/08/2022 COMP. METAB OLIC PANEL A/G 1.0 ratio 0.8-2. 0 Not Available [address], 50288, 09/08/2022 10:11:22 09/07/20 22 09/08/2022 COMP. METAB OLIC PANEL total bilirubin 0.20 mg/dL 0.00-1 .00 Not Available [address], 78762, 09/08/2022 10:11:22 09/07/20 22 09/08/2022 COMP. METAB OLIC PANEL AST 14 U/L 0-37 Not Available [address], 46456, 09/08/2022 10:11:22 09/07/20 22 09/08/2022 COMP. METAB OLIC PANEL ALT 18 U/L 6-63 Not Available [address], 44408, 09/08/2022 10:11:22 09/07/20 22 09/08/2022 COMP. METAB OLIC PANEL alk. phos. 93 U/L 50-136 Not Available [address], 21930, 09/08/2022 10:11:22 09/07/20 22 09/08/2022 LIPID PANEL cholesterol 199 mg/dL <200 mg/dl Rommel able 200-2 39 mg/dl Borde rline High >240 mg/dl High Not Available [address], 86755, 09/08/2022 10:11:23 09/07/20 22 09/08/2022 LIPID PANEL triglyceride s 49 mg/dL <150 mg/dL Ning l 150-1 99 mg/dL Borde rline High 200-4 99 mg/dL High >500 mg/dL Very High Not Available [address], 68081, 09/08/2022 10:11:23 09/07/20 22 09/08/2022 LIPID PANEL direct HDL 81 mg/dL <40 mg/dl - Major Risk for CHD >60 mg/dl - Negat ronit Risk for CHD Not Available [address], 86774, 09/08/2022 10:11:23 09/07/20 22 09/08/2022 DIREC T LDL direct LDL 93 mg/dL RISK CATEG ORY LDL GOAL _ CHD or CHD Risk Equiv alent s <100 mg/dl (10-y ear risk >20%) 2+ Risk Facto rs <130 mg/dl (10-y ear risk <= 20%) 0-1 Risk Facto r??? <160 mg/dl ??? Almos t all peopl e with 0-1 risk facto r have a 10 year risk <10%, thus 10 year risk asses ment in peopl e with 0-1 risk facto r is not demetrio maddoxy. Not Available [address], 96123, 09/08/2022 10:11:24 09/07/2009/08/2022 FREE T4 free T4 1.11 NG/dL 0.75-1 .54 Not Available [address], 17291, 09/08/2022 12:33:30 09/07/20 22 09/08/2022 TSH TSH 6.81 uIU/m L 0.50-6 .00 high The Ameri can Col[employer] ge of Endoc rinol ogy and Ameri can Thyro id Assoc iatio n recom mend goal TSH value s betwe en 0.4-4 .0 mIU/m L. Not Available [address], 82989, 09/08/2022 13:48:34 02/16/2002/16/2023 MICRO ALBUM IN/CR EATIN INE RATIO PANEL , URINE microalbumin 8.8 mg/L 1.3-20 .0 Not Available [address], 45523, 02/16/2023 09:47:36 02/16/20 23 02/16/2023 MICRO ALBUM IN/CR EATIN INE RATIO PANEL , URINE creatinine urine 148.7 mg/dL 30.0-1 25.0 high Not Available [address], 20291, 02/16/2023 09:47:36 02/16/2002/16/2023 MICRO ALBUM IN/CR EATIN INE RATIO PANEL , URINE microalb/cre at ratio 5.9 mg/g_ creat 0.0-29 .0 Not Available [address], 56228, 02/16/2023 09:47:36 02/16/2002/16/2023 HGB A1C hemoglobin A1C 6.3 % 4.8-6. 0 high Goal: <7% in Patie nts with Diabe izaiah An A1c betwe en 5.7-6 .4% is ident ified as pre-d iabet es and sugge sts risk for progr essio n to diabe izaiah Two a1c value s of 6.5% or highe r is consi stent with a diagn osis of diabe izaiah but may need furth er confi rmati on Not Available [address], 0[address]18, 02/16/2023 10:30:15 02/16/20 23 02/16/2023 HGB A1C estimated average glucose 134.1 mg/dL Not Available [address], 33818, 02/16/2023 10:30:15 02/16/2002/16/2023 FREE T4 free T4 1.08 NG/dL 0.75-1 .54 Not Available [address], 79735, 02/16/2023 11:25:53 02/16/20 23 02/16/2023 TSH TSH 3.12 uIU/m L 0.50-6 .00 The Ameri can Colle ge of Endoc rinol ogy and Ameri can Thyro id Assoc iatio n recom mend goal TSH value s betwe en 0.4-4 .0 mIU/m L. Not Available [address], 66572, 02/16/2023 11:53:23 02/16/20 23 02/19/2023 COMP. METAB OLIC PANEL glucose 120 mg/dL 70-100 high Not Available [address], 00799, 02/19/2023 12:20:56 02/16/20 23 02/19/2023 COMP. METAB OLIC PANEL BUN 15 mg/dL 7-18 Not Available [address], 89737, 02/19/2023 12:20:56 02/16/20 23 02/19/2023 COMP. METAB OLIC PANEL creatinine 1.0 mg/dL 0.8-1. 3 Not Available [address], 09980, 02/19/2023 12:20:56 02/16/20 23 02/19/2023 COMP. METAB OLIC PANEL B/C 15.0 ratio Not Available [address], 97458, 02/19/2023 12:20:56 02/16/2002/19/2023 COMP. METAB OLIC PANEL GFR >=60ML /MIN mL/mi n normal >=60m L/min - Ning l or midly reduc ed <60mL /min- Decre ased kidne y funct ion <15mL /min - Kidne y failu re [facility] calcu lates estim ated Glome rular Filtr ation Rate (eGFR ) using the Chron ic Kidne y Disea se Epide miolo gy Colla borat ion (CKD- EPI) Equat ion (Leola r et. al 2020) as recom chidi d by the Natio nal Kidne y Found ation . eGFR is based on age, serum creat inine , and sex. CKD-E PI does not calcu late eGFR by race, does not apply to child ty (age <18 years ), and shoul d not be used in pregn beena. Not Available [address], 81614, 02/19/2023 12:20:56 02/16/20 23 02/19/2023 COMP. METAB OLIC PANEL sodium 138 mmol/ L 136-14 5 Not Available [address], 54946, 02/19/2023 12:20:56 02/16/20 23 02/19/2023 COMP. METAB OLIC PANEL potassium 4.4 mmol/ L 3.5-5. 1 Not Available [address], 32939, 02/19/2023 12:20:56 02/16/20 23 02/19/2023 COMP. METAB OLIC PANEL chloride 100 mmol/ L 96-107 Not Available [address], 39253, 02/19/2023 12:20:56 02/16/20 23 02/19/2023 COMP. METAB OLIC PANEL anion gap 10.5 5.0-15 .0 Not Available [address], 35552, 02/19/2023 12:20:56 02/16/20 23 02/19/2023 COMP. METAB OLIC PANEL CO2 28 mmol/ L 21-32 Not Available [address], 82944, 02/19/2023 12:20:56 02/16/20 23 02/19/2023 COMP. METAB OLIC PANEL calcium 8.6 mg/dL 8.5-10 .3 Not Available [address], 95934, 02/19/2023 12:20:56 02/16/20 23 02/19/2023 COMP. METAB OLIC PANEL total protein 7.1 g/dL 6.4-8. 2 Not Available [address], 41737, 02/19/2023 12:20:56 02/16/20 23 02/19/2023 COMP. METAB OLIC PANEL albumin 3.8 g/dL 3.4-5. 0 Not Available [address], 07647, 02/19/2023 12:20:56 02/16/20 23 02/19/2023 COMP. METAB OLIC PANEL globulin 3.3 g/dL Not Available [address], 19462, 02/19/2023 12:20:56 02/16/20 23 02/19/2023 COMP. METAB OLIC PANEL A/G 1.2 ratio 0.8-2. 0 Not Available [address], 45451, 02/19/2023 12:20:56 02/16/20 23 02/19/2023 COMP. METAB OLIC PANEL total bilirubin 0.20 mg/dL 0.00-1 .00 Not Available [address], 62762, 02/19/2023 12:20:56 02/16/20 23 02/19/2023 COMP. METAB OLIC PANEL AST 15 U/L 0-37 Not Available [address], 24947, 02/19/2023 12:20:56 02/16/20 23 02/19/2023 COMP. METAB OLIC PANEL ALT 24 U/L 6-63 Not Available [address], 19712, 02/19/2023 12:20:56 02/16/20 23 02/19/2023 COMP. METAB OLIC PANEL alk. phos. 76 U/L 50-136 Not Available [address], 85669, 02/19/2023 12:20:56 02/16/20 23 02/19/2023 LIPID PANEL cholesterol 157 mg/dL <200 mg/dl Rommel able 200-2 39 mg/dl Borde rline High >240 mg/dl High Not Available [address], 84542, 02/19/2023 12:20:58 02/16/20 23 02/19/2023 LIPID PANEL triglyceride s 24 mg/dL <150 mg/dL Ning l 150-1 99 mg/dL Borde rline High 200-4 99 mg/dL High >500 mg/dL Very High Not Available [address], 35011, 02/19/2023 12:20:58 02/16/20 23 02/19/2023 LIPID PANEL direct HDL 77 mg/dL <40 mg/dl - Major Risk for CHD >60 mg/dl - Negat ronit Risk for CHD Not Available [address], 47822, 02/19/2023 12:20:58 02/16/20 23 02/19/2023 DIREC T LDL direct LDL 58 mg/dL RISK CATEG ORY LDL GOAL _ CHD or CHD Risk Equiv alent s <100 mg/dl (10-y ear risk >20%) 2+ Risk Facto rs <130 mg/dl (10-y ear risk <= 20%) 0-1 Risk Facto r??? <160 mg/dl ??? Almos t all peopl e with 0-1 risk facto r have a 10 year risk <10%, thus 10 year risk asses ment in peopl e with 0-1 risk facto r is not demetrio howell. Not Available [address], [address], 02/19/2023 12:20:59 09/13/2009/14/2023 MICRO ALBUM IN/CR EATIN INE RATIO PANEL , URINE creatinine urine 14.6 mg/dL 30.0-1 25.0 low MARY JANE=M icroa lbumi n <1.3 mg/L, Canno t Calcu late Ratio . Not Available [address], 734[address], 09/14/2023 09:32:40 09/13/2009/14/2023 LIPID PANEL cholesterol 195 mg/dL <200 mg/dl Rommel able 200-2 39 mg/dl Borde rline High >240 mg/dl High Not Available [address], 74709, 09/14/2023 09:32:42 09/13/20 23 09/14/2023 LIPID PANEL triglyceride s 61 mg/dL <150 mg/dL Ning l 150-1 99 mg/dL Borde rline High 200-4 99 mg/dL High >500 mg/dL Very High Not Available [address], 74112, 09/14/2023 09:32:42 09/13/20 23 09/14/2023 LIPID PANEL direct HDL 93 mg/dL <40 mg/dl - Major Risk for CHD >60 mg/dl - Negat ronit Risk for CHD Not Available [address], 37201, 09/14/2023 09:32:42 09/13/2009/14/2023 DIREC T LDL direct LDL 80 mg/dL RISK CATEG ORY LDL GOAL _ CHD or CHD Risk Equiv alent s <100 mg/dl (10-y ear risk >20%) 2+ Risk Facto rs <130 mg/dl (10-y ear risk <= 20%) 0-1 Risk Facto r??? <160 mg/dl ??? Almos t all peopl e with 0-1 risk facto r have a 10 year risk <10%, thus 10 year risk asses ment in peopl e with 0-1 risk facto r is not neces lynda. Not Available [address], [address]3651, 09/14/2023 09:32:43 09/13/20 23 09/14/2023 COMP. METAB OLIC PANEL glucose 117 mg/dL 70-100 high Not Available [address], 93090, 09/14/2023 09:36:05 09/13/20 23 09/14/2023 COMP. METAB OLIC PANEL BUN 10 mg/dL 7-18 Not Available [address], 70948, 09/14/2023 09:36:05 09/13/20 23 09/14/2023 COMP. METAB OLIC PANEL creatinine 0.9 mg/dL 0.8-1. 3 Not Available [address], 04526, 09/14/2023 09:36:05 09/13/20 23 09/14/2023 COMP. METAB OLIC PANEL B/C 11.1 ratio Not Available [address], 91012, 09/14/2023 09:36:05 09/13/20 23 09/14/2023 COMP. METAB OLIC PANEL GFR >=60ML /MIN mL/mi n normal >=60m L/min - Ning l or midly reduc ed <60mL /min- Decre ased kidne y funct ion <15mL /min - Kidne y failu re [facility] calcu lates estim ated Glome rular Filtr ation Rate (eGFR ) using the Chron ic Kidne y Disea se Epide miolo gy Colla borat ion (CKD- EPI) Equat ion (Marianne r et. al 2020) as recom chidi d by the Natio nal Kidne y Found ation . eGFR is based on age, serum creat inine , and sex. CKD-E PI does not calcu late eGFR by race, does not apply to child ty (age <18 years ), and shoul d not be used in pregn beena. Not Available [address], [address], 09/14/2023 09:36:05 09/13/20 23 09/14/2023 COMP. METAB OLIC PANEL sodium 136 mmol/ L 136-14 5 Not Available [address], 64708, 09/14/2023 09:36:05 09/13/20 23 09/14/2023 COMP. METAB OLIC PANEL potassium 4.3 mmol/ L 3.5-5. 1 Not Available [address], 02678, 09/14/2023 09:36:05 09/13/20 23 09/14/2023 COMP. METAB OLIC PANEL chloride 99 mmol/ L 96-107 Not Available [address], 87715, 09/14/2023 09:36:05 09/13/20 23 09/14/2023 COMP. METAB OLIC PANEL anion gap 10.7 5.0-15 .0 Not Available [address], 26585, 09/14/2023 09:36:05 09/13/20 23 09/14/2023 COMP. METAB OLIC PANEL CO2 26 mmol/ L 21-32 Not Available [address], 52980, 09/14/2023 09:36:05 09/13/20 23 09/14/2023 COMP. METAB OLIC PANEL calcium 9.1 mg/dL 8.5-10 .3 Not Available [address], 51767, 09/14/2023 09:36:05 09/13/20 23 09/14/2023 COMP. METAB OLIC PANEL total protein 7.3 g/dL 6.4-8. 2 Not Available [address], 01257, 09/14/2023 09:36:05 09/13/20 23 09/14/2023 COMP. METAB OLIC PANEL albumin 3.8 g/dL 3.4-5. 0 Not Available [address], 37322, 09/14/2023 09:36:05 09/13/20 23 09/14/2023 COMP. METAB OLIC PANEL globulin 3.5 g/dL Not Available [address], 08149, 09/14/2023 09:36:05 09/13/20 23 09/14/2023 COMP. METAB OLIC PANEL A/G 1.1 ratio 0.8-2. 0 Not Available [address], 84626, 09/14/2023 09:36:05 09/13/20 23 09/14/2023 COMP. METAB OLIC PANEL total bilirubin 0.20 mg/dL 0.00-1 .00 Not Available [address], [id number], 09/14/2023 09:36:05 09/13/20 23 09/14/2023 COMP. METAB OLIC PANEL AST 16 U/L 0-37 Not Available [address], [address], 09/14/2023 09:36:05 09/13/20 23 09/14/2023 COMP. METAB OLIC PANEL ALT 25 U/L 6-63 Not Available [address], [address], 09/14/2023 09:36:05 09/13/20 23 09/14/2023 COMP. METAB OLIC PANEL alk. phos. 83 U/L 50-136 Not Available [address], [address], 09/14/2023 09:36:05 09/13/20 23 09/14/2023 HGB A1C hemoglobin A1C 7.3 % 4.8-6. 0 high Goal: <7% in Patie nts with Diabe izaiah An A1c betwe en 5.7-6 .4% is ident ified as pre-d iabet es and sugge sts risk for progr essio n to diabe izaiah Two a1c value s of 6.5% or highe r is consi stent with a diagn osis of diabe izaiah but may need furth er confi rmati on Not Available [address], [address], 09/14/2023 10:07:11 09/13/20 23 09/14/2023 HGB A1C estimated average glucose 162.8 mg/dL Not Available [address], [address], 09/14/2023 10:07:11 09/13/20 23 09/14/2023 FREE T4 free T4 0.90 NG/dL 0.75-1 .54 Not Available [address], [address], 09/14/2023 11:26:55 09/13/20 23 09/14/2023 TSH TSH 9.77 uIU/m L 0.50-6 .00 high [facility] [employer] [facility] iatio n recom mend goal TSH value s betwe en 0.4-4 .0 mIU/m L. Not Available [address], [address], 09/14/2023 11:43:34 07/24/20 24 07/24/2024 FREE T4 free T4 1.22 NG/dL 0.75-1 .54 Not Available [address], [address], 07/24/2024 15:38:25 07/24/20 24 07/24/2024 HGB A1C hemoglobin A1C 7.9 % 4.8-6. 0 high Goal: <7% in Patie nts with Diabe izaiah An A1c betwe en 5.7-6 .4% is ident ified as pre-d iabet es and sugge sts risk for progr essio n to diabe izaiah Two a1c value s of 6.5% or highe r is consi stent with a diagn osis of diabe izaiah but may need furth er confi rmati on Not Available [address], [address], 07/24/2024 15:43:59 07/24/20 24 07/24/2024 HGB A1C estimated average glucose 180.0 mg/dL Not Available [address], [address], 07/24/2024 15:43:59 07/24/20 24 07/24/2024 COMP. METAB OLIC PANEL glucose 63 mg/dL 70-100 low Not Available [address], [address], 07/24/2024 15:56:31 07/24/20 24 07/24/2024 COMP. METAB OLIC PANEL BUN 14 mg/dL 7-18 Not Available [address], [address], 07/24/2024 15:56:31 07/24/20 24 07/24/2024 COMP. METAB OLIC PANEL creatinine 1.1 mg/dL 0.8-1. 3 Not Available [address], [address], 07/24/2024 15:56:31 07/24/20 24 07/24/2024 COMP. METAB OLIC PANEL B/C 12.7 ratio Not Available [address], [address], 07/24/2024 15:56:31 07/24/20 24 07/24/2024 COMP. METAB OLIC PANEL GFR >=60ML /MIN mL/mi n normal >=60m L/min - Ning l or midly reduc ed <60mL /min- Decre ased kidne y funct ion <15mL /min - Kidne y failu re [facility] calcu lates estim ated Glome rular Filtr ation Rate (eGFR ) using the Chron ic Kidne y Disea se Epide miolo gy Colla borat ion (CKD- EPI) Equat ion (Leola r et. al 2020) as recom chidi d by the Keshia pierce . eGFR is based on age, serum creat inine , and sex. CKD-E PI does not calcu late eGFR by race, does not apply to child ty (age <18 years ), and shoul d not be used in pregn beena. Not Available [address], [address], 07/24/2024 15:56:31 07/24/20 24 07/24/2024 COMP. METAB OLIC PANEL sodium 137 mmol/ L 136-14 5 Not Available [address], [address], 07/24/2024 15:56:31 07/24/20 24 07/24/2024 COMP. METAB OLIC PANEL potassium 4.8 mmol/ L 3.5-5. 1 Not Available [address], [address], 07/24/2024 15:56:31 07/24/20 24 07/24/2024 COMP. METAB OLIC PANEL chloride 100 mmol/ L 96-107 Not Available [address], [address], 07/24/2024 15:56:31 07/24/20 24 07/24/2024 COMP. METAB OLIC PANEL anion gap 10.0 5.0-15 .0 Not Available [address], [address], 07/24/2024 15:56:31 07/24/20 24 07/24/2024 COMP. METAB OLIC PANEL CO2 27 mmol/ L 21-32 Not Available [address], [address], 07/24/2024 15:56:31 07/24/20 24 07/24/2024 COMP. METAB OLIC PANEL calcium 9.2 mg/dL 8.5-10 .3 Not Available [address], [address], 07/24/2024 15:56:31 07/24/20 24 07/24/2024 COMP. METAB OLIC PANEL total protein 7.4 g/dL 6.4-8. 2 Not Available [address], [address], 07/24/2024 15:56:31 07/24/20 24 07/24/2024 COMP. METAB OLIC PANEL albumin 3.6 g/dL 3.4-5. 0 Not Available [address], [address], 07/24/2024 15:56:31 07/24/20 24 07/24/2024 COMP. METAB OLIC PANEL globulin 3.8 g/dL Not Available [address], [address], 07/24/2024 15:56:31 07/24/20 24 07/24/2024 COMP. METAB OLIC PANEL A/G 0.9 ratio 0.8-2. 0 Not Available [address], [address], 07/24/2024 15:56:31 07/24/20 24 07/24/2024 COMP. METAB OLIC PANEL total bilirubin 0.20 mg/dL 0.00-1 .00 Not Available [address], [address], 07/24/2024 15:56:31 07/24/20 24 07/24/2024 COMP. METAB OLIC PANEL AST 20 U/L 0-37 Not Available [address], [address], 07/24/2024 15:56:31 07/24/20 24 07/24/2024 COMP. METAB OLIC PANEL ALT 32 U/L 6-63 Not Available [address], [address], 07/24/2024 15:56:31 07/24/20 24 07/24/2024 COMP. METAB OLIC PANEL alk. phos. 110 U/L 50-136 Not Available [address], [address], 07/24/2024 15:56:31 07/24/20 24 07/24/2024 LIPID PANEL cholesterol 194 mg/dL <200 mg/dl Rommel able 200-2 39 mg/dl Borde rline High >240 mg/dl High Not Available [address], [address], 07/24/2024 15:56:32 07/24/20 24 07/24/2024 LIPID PANEL triglyceride s 54 mg/dL <150 mg/dL Ning l 150-1 99 mg/dL Borde rline High 200-4 99 mg/dL High >500 mg/dL Very High Not Available [address], [address], 07/24/2024 15:56:32 07/24/20 24 07/24/2024 LIPID PANEL direct HDL 92 mg/dL <40 mg/dl - Major Risk for CHD >60 mg/dl - Negat ronit Risk for CHD Not Available [address], [address], 07/24/2024 15:56:32 07/24/20 24 07/24/2024 DIREC T LDL direct LDL 87 mg/dL RISK CATEG ORY LDL GOAL _ CHD or CHD Risk Equiv alent s <100 mg/dl (10-y ear risk >20%) 2+ Risk Facto rs <130 mg/dl (10-y ear risk <= 20%) 0-1 Risk Facto r??? <160 mg/dl ??? Almos t all peopl e with 0-1 risk facto r have a 10 year risk <10%, thus 10 year risk asses ment in peopl e with 0-1 risk facto r is not demetrio howell. Not Available [address], [address], 07/24/2024 15:56:32 07/24/20 24 07/24/2024 TSH TSH 4.03 uIU/m L 0.50-6 .00 The Ameri can Colle ge of Endoc rinol ogy and Ameri can Thyro id Assoc iatio n recom mend goal TSH value s betwe en 0.4-4 .0 mIU/m L. Not Available [address], [address], 07/24/2024 16:13:46 07/24/20 24 07/24/2024 MICRO ALBUM IN/CR EATIN INE RATIO PANEL , URINE microalbumin 22.2 mg/L 1.3-20 .0 high Not Available [address], [address], 07/24/2024 16:13:55 07/24/20 24 07/24/2024 MICRO ALBUM IN/CR EATIN INE RATIO PANEL , URINE creatinine urine 194.6 mg/dL 30.0-1 25.0 high Not Available [address], [address], 07/24/2024 16:13:55 07/24/20 24 07/24/2024 MICRO ALBUM IN/CR EATIN INE RATIO PANEL , URINE microalb/cre at ratio 11.4 mg/g_ creat 0.0-29 .0 Not Available [address], [address], 07/24/2024 16:13:55 Result Notes None recorded. 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 307451770 Active 2003 Kasey Kohli, [place], RN, CPT, CDE [address] [place] [address], [phone] , [facility] 3 14:45:34 Panic disorder without agoraphobi a 24180185 Active 2006 Negar Sandoval PA-C [address] [place] [address], [phone] , [facility] 6 14:53:00 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 832338601 Active 2005 Not Available [facility] 3 03:12:28 Polyneurop athy due to diabetes mellitus 08986031 Active 2003 Not Available [facility] 3 03:12:28 Type 2 diabetes mellitus without complicati on 844900749 Completed 200608/04/2015 [facility] 09:45:21 Hypoglycem ia 148755478 Active 2004 Benny Gunn MD [address] [place] [address], [phone] , [facility] 4 14:52:43 Child attention deficit disorder 856703229 Active Not Available [facility] 3 03:12:28 Hypothyroi dism 00830763 Active 2003 Negar Sandoval PA-C [address] [place] [address], [phone] , [facility] 6 14:55:58 Malaise and fatigue 007462517 Completed 08/06/2013 Not Available [facility] 3 02:00:18 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 Procedures Surgical History Date Name Laterality Status Provider Name and Address Organization Details Recorded Time 2 Medicare Visit Tracking DM cancelled Julee Roque RN, BSN, [address], [address], [facility] 04/05/2022 14:32:19 2 Medicare Visit Tracking DM completed Julee Roque RN, BSN, [address], [address], [facility] 12/28/2021 15:28:39 2 Medicare Visit Tracking DM completed Julee Roque RN, BSN, [address], [address], [facility] 10/19/2021 12:13:39 8 Medicare Visit Tracking DM completed Julee Roque RN, BSN, [address], [address], [facility] 03/08/2018 08:14:02 8 Medicare Visit Tracking DM completed Julee Roque RN, BSN, [address], [address], [facility] 11/07/2017 16:24:29 7 Medicare Visit Tracking DM completed Julee Roque RN, BSN, [address], [address], [facility] 09/05/2017 15:56:16 Imaging Results None recorded. Procedure Notes None recorded. Medical Equipment None Reported. Allergies Allergen ID Allergen Name Allergen Category Reaction Reaction Severity Criticality Documentation Date Start Date Code Code System Note Provider Name and Address Organization Details Recorded Time 5445 Substance with sulfonami de structure and antibacte rial mechanism of action (substanc e) medicatio n other severe Not available 11/25/2008 32405 8003 SNOMED Not Available [facility] 1 06:05:20 Medications Name Sig Start Date Stop Date Status Note LastModified by Organization Details LastModified Time Prescript ion - Clarifica tion active Not Available Not Available Not Available Prescript ion - Prior Authoriza tion Request active Not Available Not Available Not Available fluoxetin e 40 mg capsule TAKE 1 CAPSULE BY MOUTH EVERY MORNING active Not Available Not Available No t Available Adderall 20 mg tablet Take 1 tablet every day by oral route. active in am Not Available Not Available No t Available Glucagon Emergency Kit 1 mg solution for injection INJECT 1MG intramus cularly NEEDED 2019 active Not Available Not Available Not Avai lable Novolin N NPH U-100 Insulin isophane 100 unit/mL subcutane ous susp ADMINIST ER 10 UNITS UNDER THE SKIN EVERY DAY AT BEDTIME 02/15 completed unsure if should be taking this or the levimer but taking the Levimer right now. Not Available Not Available Not Available methylphe nidate 10 mg tablet TAKE 1 TABLET BY MOUTH EVERY MORNING DIRECTED active Not Available Not Available No t Available Synthroid 200 mcg tablet Take 1 tablet every day by oral route. 03/14 completed Not Available Not Available Not Available Synthroid 150 mcg tablet Take 1 tablet every day by oral route for 30 days. 2012 active last appt 10/30, last labs 10/30 (pt past due for repeat labs), no f/u schedule d Not Available Not Available Not Available methylphe nidate 20 mg tablet Take 1 tablet twice a day by oral route. active extended release takes 1 tab PO daily in addition to 5 mg short acting Not Available Not Available Not Available meloxicam 15 mg tablet TAKE 1 TABLET BY MOUTH DAILY 09/07 completed Not Available Not Available Not Available FreeStyle Lancets 28 gauge USE TO TEST BLOOD GLUCOSE 8 TIMES DAILY active Not Available Not Available No t Available methylphe nidate 5 mg tablet Take 1 tablet twice a day by oral route as needed. 07/17 completed Not Available Not Available Not Available clonazepa m 0.5 mg tablet TAKE 1 TABLET BY MOUTH TWICE DAILY NEEDED active Not Available Not Available No t Available simvastat in 10 mg tablet TAKE 1 TABLET BY MOUTH EVERY DAY active Not Available Not Available No t Available Lantus U-100 Insulin 100 unit/mL subcutane ous solution Inject 18 units nightly by subcutan eous route per insulin protocol 07/27 completed now uses levamir Not Available Not Available Not Available Wellbutri n SR 150 mg tablet, 12 hr sustained -release active Take 1 tab. q.d. Not Available Not Available Not Available Synthroid 175 mcg tablet TAKE 1 TABLET BY MOUTH EVERY DAY FOR 6 DAYS THEN 1 AND 1/2 TABLET BY MOUTH ON DAYS active Not Available Not Available No t Available trazodone 100 mg tablet TAKE 2 TABLETS BY MOUTH AT BEDTIME active Not Available Not Available No t Available Humalog U-100 Insulin 100 unit/mL subcutane ous solution inject 3 to 16 units (up to 45 units per day) subcutan eously before meals three times a day as directed and per sliding scale. 12/19 completed 5 to 10 units before meals 12/19/16 Not Available Not Available Not Available trazodone 150 mg tablet TK 1 TO 1 AND 1/3 TABLET PO HS PRN FOR SLEEP 03/10 completed Not Available Not Available Not Available buspirone 10 mg tablet TAKE 1 TABLET BY MOUTH TWICE DAILY 03/10 completed Not Available Not Available Not Available prednison e 50 mg tablet take 1 tablet by mouth once daily for 5 days 07/17 completed Not Available Not Available Not Available Concerta 36 mg tablet,ex tended release active 1 qd Not Available Not Available Not Available Novolog U-100 Insulin aspart 100 unit/mL subcutane ous solution INJECT 5-8 UNITS SUBCUTAN EOUS THREE TIMES DAILY WITH FOOD. PER SLIDING SCALE. MAX DAILY DOSE OF 45 UNITS 07/24 completed Not Available Not Available Not Available fluoxetin e 20 mg capsule TAKE 1 CAPSULE BY MOUTH EVERY DAY active Not Available Not Available No t Available fluticaso ne propionat e 50 mcg/actua tion nasal spray,ryan pension SHAKE LIQUID AND USE 1 SPRAY IN EACH NOSTRIL DAILY active Not Available Not Available No t Available Ketostix strips test urine for ketones when blood sugar elevated or when feeling sick active Not Available Not Available No t Available Adderall 10 mg tablet Take 1 tablet every day by oral route. active in afternoo n Not Available Not Available Not Available oxycodone 5 mg tablet TAKE 1 TABLET BY MOUTH EVERY 4 HOURS NEEDED FOR MODERATE PAIN 12/22 /2022 completed Not Available Not Available Not Available enoxapari n 40 mg/0.4 mL subcutane ous syringe INJECT THE CONTENTS OF 1 SYRINGE SUBCUTAN EOUSLY EVERY DAY 09/07 completed Not Available Not Available Not Available Novolog PenFill U-100 Insulin aspart 100 unit/mL subcutane ous cartridg Taking 3-7 units with each meal and snack (max dose of 35 units) 01/28 completed Not Available Not Available Not Available azithromy domi 500 mg tablet take 1 tablet by mouth once daily 07/17 completed Not Available Not Available Not Available Novolog FlexPen U-100 Insulin aspart 100 unit/mL (3 mL) subcutane ous INJECT 10 UNITS SUBCUTAN EOUS WITH MEALS AND SNACKS 5 TIMES A DAY active Not Available Not Available No t Available bupropion HCl XL 300 mg 24 hr tablet, extended release TAKE 1 TABLET BY MOUTH EVERY MORNING AFTER MEALS active Not Available Not Available No t Available bupropion HCl XL 150 mg 24 hr tablet, extended release TAKE 1 TABLET BY MOUTH EVERY MORNING 03/10 completed Not Available Not Available Not Available lancing device USE DIRECTED active Not Available Not Available No t Available Fish Oil 1,200 mg-144 mg-216 mg capsule active taking 1 daily Not Available Not Available Not Available Accu-Chek Multiclix Lancet TEST 8 TIMES A DAY active Not Available Not Available No t Available multivita min 1 tab PO daily active Not Available Not Available No t Available Calcium 600 + D(3) 08/26 completed Take 1 tab. q.d. Not Available Not Available Not Available Levemir U-100 Insulin 100 unit/mL subcutane ous solution INJECT 8 UNITS UNDER THE SKIN EVERY DAY AT BEDTIME 07/24 completed Not Available Not Available Not Available Levemir FlexPen 100 unit/mL (3 mL) solution subcutane ous insulin pen Inject 10 units at 11am and 5 units at midnight 2008 active Sample Qty: 6. pt will try pen and check with insuranc e coverage tosee if will cover pen. If not, rx for vials already placed. Not Available Not Available Not Available BD Insulin Syringe Ult-Fine II 0.5 mL 31 gauge x 5/16 USE 6 TIMES PER DAY 12/13 completed last appt 09/24/13, last labs 09/24/13, upcoming f/u 12/24 Not Available Not Available Not Available BD Ultra-Fin e Short Pen Needle 31 gauge x 5/16 USE TO ADMINIST ER INSULIN 6 TIMES A DAY active Not Available Not Available No t Available I-Port misc use for insulin administ ration every 3 days. 2009 active Not Available Not Available Not Avai lable FreeStyle Lite Meter kit use as directed 02/05 completed Not Available Not Available Not Available FreeStyle Lite Strips USE 8 TIMES DAILY active Not Available Not Available No t Available Lantus Solostar U-100 Insulin 100 unit/mL (3 mL) subcutane ous pen INJECT 5 UNITS INTO THE SKIN EVERY DAY 07/24 completed Not Available Not Available Not Available Humalog KwikPen (U-100) Insulin 100 unit/mL subcutane ous Admin. 5-8 units sc per meal 2010 active Not Available Not Available Not Avai lable BD Insulin Syringe Ultra-Fin e 0.5 mL 31 gauge x 5/16 USE DIRECTED TO INJECT INSULIN 6 TIMES A DAY active Not Available Not Available No t Available Novopen Echo subcutane ous 09/07 completed Not Available Not Available Not Available Toujeo SoloStar U-300 Insulin 300 unit/mL (1.5 mL) subcutane ous pen INJECT 6 UNITS SUBCUTAN EOUS EVERY NIGHT AT BEDTIME active Not Available Not Available No t Available Dexcom G6 Sensor device USE DIRECTED CHANGE EVERY 10 DAYS 2024 active Not Available Not Available Not Avai lable Dexcom G6 Transmitt er device USE DIRECTED active Not Available Not Available No t Available Baqsimi 3 mg/actuat ion nasal spray [place] 1 spray intranas ally as needed for sever hypoglyc emia 08/02 completed Not Available Not Available Not Available Glucagon (HCl) Emergency Kit 1 mg solution for injection Take 1 mg every day by injectio n route as needed. 08/26 completed Not Available Not Available Not Available Vitals Date Recorded Body weight Body mass index (BMI) Body height Heart rate Systolic blood pressure Diastolic blood pressure Provider Name and Address Organization Details Last Updated DateTime 2 58924.2 2 g 33 kg/m2 166.37 cm 72 /min 121 mm[Hg] 68 mm[Hg] Patty Arriola [facility] 2 14:13:33 Date Recorded Body height Body mass index (BMI) Body weight Heart rate Systolic blood pressure Diastolic blood pressure Provider Name and Address Organization Details Last Updated DateTime 3 166.37 cm 34.1 kg/m2 27545.9 3 g 72 /min 126 mm[Hg] 76 mm[Hg] Patty Arriola [facility] 3 14:06:41 Date Recorded Body height Body mass index (BMI) Body weight Heart rate Systolic blood pressure Diastolic blood pressure Provider Name and Address Organization Details Last Updated DateTime 3 166.37 cm 37.7 kg/m2 014181. 53 g 69 /min 141 mm[Hg] 83 mm[Hg] Patty Haywood [facility] 3 14:15:37 Date Recorded Body height Body mass index (BMI) Body weight Heart rate Systolic blood pressure Diastolic blood pressure Provider Name and Address Organization Details Last Updated DateTime 4 166.37 cm 36.2 kg/m2 783323. 63 g 97 /min 143 mm[Hg] 85 mm[Hg] Patty Arriola [facility] 4 13:41:01 Social History Question Answer Notes LastModified by Organizat ion Details LastModified Time Tobacco Smoking Status Former Smoker quit 2002 Not Available [facility] 02/09/2011 02:08:18 What Is Your Level Of Alcohol Consumption? None Information not available 01/04/2016 What Type Of Diet Are You Following? DIABETIC Information not available 10/31/2019 Which Illicit Or Recreational Drugs Have You Used? 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 [employer] Longterm Madhav [email or web address] Information not available 09/07/2022 Live Alone Or With Others? Alone Information not available 10/30/2012 DM Disease Process Not Assessed Information not available 05/14/2019 Nutrition Post-grasps [place] 10/30/19 Information not available 10/31/2019 Physical Activity Post-needs Review 10/30/19 Information not available 05/15/2018 Medications Post-needs Review 09/25/19 Information not available 05/14/2019 Monitoring Post-shows Competency 10/30/19 (CGM + Meter) Information not available 05/14/2019 Acute Complications Post-shows Competency 09/25/19 Information not available 09/05/2017 Chronic Complications Post-shows Competency 09/25/19 Information not available 05/15/2018 Coping Post-shows Competency 09/25/19 Information not available 05/15/2018 Behavior Change Post-shows Competency 09/25/19 Information not available 05/15/2018 DSME Plan Goal Using Medications Safely: Start Taking Toujeo 2 Units Once A Day. Information not available 09/05/2017 DSME Plan Goal Success Initiated Information not available 09/28/2019 DSME Plan Goal Evaluation: 09/25/2019 Information not available 09/28/2019 DSME 2nd Goal Healthy Eating Eat 3 Regular Meals/day With Protein And 30-45 Gm Carb; Limit Snacks To 20 Gm Carb Information not available 10/31/2019 DSME 2nd Goal Success Initiated Information not available 10/31/2019 DSME 2nd Goal Evaluation: 10/30/2019 Information not available 10/31/2019 DSME Plan Initiated: 09/05/2017 DSMT 1:1 -8-10 Information not available 09/05/2017 DSME Plan Status In Progress - 11/27/12, 12/25/12, 04/23/13 DSME Dates Seen: 2016 X1; 2017 X 3; 10/10/18, 05/14/19; 09/25/19 MNT: 10/30/19 Initial [email or web address] Information not available 03/11/2012 Diabetes Ed Classes Discussed Patient Not Appropriate Type 1 Information not available 03/08/2018 Marital Status Single Oct 2019: In Fall 2018 Broke Up With Partner Phil Of 23 Yrs. Lived W/ Parents, Now Alone In Own Apt. VETO miller Information not available 10/30/2012 What Was The Date Of Your Most Recent Tobacco Screening? 08/20/2018 Information not available 04/09/2019 How Many Children Do You Have? 0 paul Information not available 10/30/2012 General Stress Level Medium Depression, ADHD Information not available 10/31/2019 Do You Use Any Illicit Or Recreational Drugs? No [email or web address] Information not available 09/15/2021 How Many Years Have You Smoked Tobacco? 14 [email or web address] Information not available 09/24/2013 Do You Or Have You Ever Used Any Other Forms Of Tobacco Or Nicotine? No Information not available 09/07/2022 Sex: Unknown Functional Status None recorded. Mental Status None recorded. Family History Relationship Description Onset Age of this Age Resolved Age Notes LastModified by Organization Details LastModified Time Mother Arthritis paul Not avail able 01/04/2016 14:14:54 Father Hypothyroidi sm paul Not available 12/16 14:14:54 Notes:father-hypothyroidism; PGF-T2DM, maternal cousin-T1DM,Cardiac roykchz-ZQX-rmaly disease, MGF- stroke : 01/25- mom- alive at 60- generally healthy. some arthiritis. 07/28- dad is alive. one brother- alive (44) in good health. 09/30- no kids. 07/05- Parents OK. one brother OK. 09/06: Family OK 09/07: No changes. Medical History Condition Response Diabetes Type I Y Thyroid Disease Y Depression Y Alcoholism Y Gynecological HistoryNo gynecological history recorded. Obstetrics History GPAL:G 0 P 0 0 0 0 Immunizations Vaccine Type Date Status Note Provider Nam e and Address Organization Details Recorded Time influenza, unspecified formulation 7 completed VALENTINE Hummel, [facility] 08/21/2017 14:06:50 Influenza, split virus, quadrivalent, preservative 0 completed Chanel Hodge RN BSN [address] [place] [address], [phone], [facility] 08/26/2020 14:49:30 COVID-19, mRNA, LNP-S, PF, 30 mcg/0.3 mL dose 1 completed VALENTINE Zhong, [facility] 03/10/2021 13:53:33 COVID-19, mRNA, LNP-S, PF, 30 mcg/0.3 mL dose 1 [facility]/10/2021 13:54:01 Influenza, split virus, trivalent, preservative 0 completed Not Available [facility] 10/04/2019 02:17:49 Influenza, split virus, quadrivalent, preservative 1 completed [facility]15[facility] 13:58:06 COVID-19, mRNA, LNP-S, PF, 30 mcg/0.3 mL dose 1 [facility]/15/2021 13:58:26 COVID-19, mRNA, LNP-S, bivalent, PF, 30 mcg/0.3 mL dose 2 [facility]/07/2022 14:09:38 Past Encounters Encounter ID Performer Location Encounter Start Date Encounter Closed Date Diagnosis/Indication Diagnosis SNOMED-CT Code Diagnosis ICD10 Code Diagnosis Note [id number] Endocrino logy, [address] [address] 09/02/2004 14:12:53 09/02/2004 16:53:15 [id number] Endocrino logy, [address] [address] 02/01/2005 13:47:13 02/01/2005 16:42:18 [id number] Endocrino logy, [address] [address] 07/14/2005 14:55:17 07/17/2005 08:53:52 [id number] LAB - [address] [address] 07/14/2005 16:24:06 07/14/2005 16:24:31 [id number] Endocrino logy, [address] [address] 1 08/17/2005 14:14:40 08/18/2005 14:53:19 [id number] Endocrino logy, [address] [address] 1 10/18/2005 14:27:50 10/19/2005 07:41:42 [id number] Endocrino logy, [facility] [place] [address] 1 11/30/2005 13:24:11 12/01/2005 09:16:48 [id number] LAB - [facility] [place] [address] 1 11/30/2005 15:15:15 11/30/2005 15:15:26 [id number] LAB - [facility] [place] [id number] 1 01/11/2006 14:31:16 01/11/2006 14:31:29 [id number] Endocrino logy, [facility] [place] [address] 1 01/11/2006 13:36:14 01/12/2006 08:14:59 [id number] Endocrino logy, [facility] [place] [address] 1 02/16/2006 13:43:02 02/16/2006 16:41:52 [id number] Endocrino logy, [facility] [place] [address] 1 04/26/2006 14:12:32 04/27/2006 09:32:44 [id number] LAB - [facility] [place] [address] 1 06/21/2006 15:43:06 06/21/2006 15:48:08 [id number] Endocrino logy, [facility] [place] [address] 1 06/21/2006 14:22:28 06/22/2006 12:19:46 [id number] Endocrino logy, [facility] [place] [address] 1 09/27/2006 13:53:07 09/28/2006 08:50:19 [id number] LAB - [facility] [place] [address] 1 09/27/2006 15:21:54 09/27/2006 15:22:04 [id number] Endocrino logy, [facility] [place] [address] 1 09/27/2006 00:00:00 10/07/2008 02:02:29 [id number] Endocrino logy, [facility] [place] [address] 1 04/10/2007 13:47:42 04/10/2007 17:23:55 [id number] LAB - [facility] [place] [address] 1 04/10/2007 15:05:33 04/10/2007 15:06:09 [id number] Endocrino logy, [facility] [place] [address] 1 07/24/2007 12:53:23 07/24/2007 15:29:40 [id number] LAB - [facility] [place] [address] 1 07/24/2007 13:41:00 07/24/2007 13:41:04 [id number] Endocrino logy, [facility] [place] [address] 1 01/09/2008 13:23:40 10/07/2008 02:02:29 [id number] LAB - [facility] [place] [address] 1 01/09/2008 14:48:29 01/09/2008 14:48:40 [id number] LAB - [facility] [place] [address] 1 07/03/2008 14:41:34 07/03/2008 14:41:47 [id number] Endocrino logy, [facility] [place] [address] 1 07/03/2008 13:00:49 10/07/2008 02:02:29 [id number] Endocrino logy, [facility] [place] [address] 1 09/30/2008 12:47:35 10/07/2008 02:02:29 [id number] LAB - [facility] [place] [address] 1 09/30/2008 14:14:46 09/30/2008 14:14:52 [id number] Endocrino logy, [facility] [place] [address] 1 11/25/2008 13:52:31 11/26/2008 15:17:15 [id number] Endocrino logy, [facility] [place] [address] 1 03/10/2009 14:27:15 04/26/2009 13:34:21 [id number] Endocrino logy, [facility] [place] [address] 1 04/21/2009 13:01:25 05/07/2009 09:47:30 [id number] Endocrino logy, [address] [place] [address] 1 06/18/2009 13:47:27 06/22/2009 09:30:30 [id number] LAB - [address] [place] [address] 1 03/10/2009 15:26:51 03/10/2009 15:27:14 [id number] Endocrino logy, [address] [place] [address] 1 02/09/2010 14:36:17 02/21/2010 09:40:24 [id number] Aixa Rodriguez Endocrino logy, [address] [place] [address] 1 07/27/2010 13:41:35 07/28/2010 15:34:57 [id number] Endocr[facility]y, [address] [place] [address] 1 01/19/2011 14:39:56 01/25/2011 14:26:16 [id number] Endocrino logy, [address] [place] [address] 1 08/09/2011 14:45:11 08/09/2011 17:11:14 [id number] Aixa Rodriguez Endocrino logy, [address] [address] 02/01/2012 13:16:46 02/01/2012 15:14:50 [id number] [facility] -[address] [address] 03/11/2012 14:11:27 03/11/2012 15:35:33 [id number] Benny Gunn MD Endocrino logy, [address] [address] 04/24/2012 14:53:57 04/24/2012 16:32:07 [id number] Silvana Mendoza Endocrino logy, [address] [address] 1 10/30/2012 14:19:35 10/30/2012 15:27:49 [id number] Kasey Kohli, BSN, RN, CPT, CDE [facility] , [address] [address] 1 11/27/2012 13:17:51 11/27/2012 14:36:12 [id number] CLEVELAND SalcidoN, RN, CPT, CDE [facility] , [address] [address] 1 12/25/2012 13:24:54 12/25/2012 14:30:09 [id number] [facility] , [address] [address] 1 04/23/2013 13:14:52 04/23/2013 14:39:11 Uncontrolled type 1 diabetes mellitus [id number] 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 Encourage her to update labs (last were 04/29). Hypoglycemia [id number] V stacey frequent (with several days having several hours of lows). Many times due to overtreati ng highs - less in AM. Continue to split levemir- if can decrease frequency of lows, may need more at night. Hypothyroidism [id number] on Snthroid 175- update TFTs and adjust dose prn. [id number] Nancy Beltran LPN Endocrino [facility], [address] [address] 1 12/24/2013 13:56:15 12/24/2013 15:32:11 Hypothyroidism [id number] doing well clinically and biochemial ly. monitor labs and adjust prn Type 1 monica betes mellitus 67512010 Although a1c has been OK, her variabilit y is very significan t with frequent lows and values over 150-300. MOre of a problem in past week when she report more PMS- happens every month. Increase HS levemir to 8 and even to 10 if PMS AM values are high Also many of her lows are within couple of hours of preceding reading- likely giving too much insulin (misjudgin g carbs- gave 6 units for protein drink) or using too much to correct. Asked her about correction - if had BG of 250, would use scale in past (before would give 7 units) but also depends if she's going to be at work (gives less cause doesn't want to have a low there). Suggest see Kasey Panic diso rder without agoraphobia [id number] affects her ability to come to appointmen ts and adhere to dietary and lifestyle regimens. [id number] Endocrino logy, [address] [address] 03/24/2014 13:53:48 03/24/2014 15:08:02 Type 1 diabetes mellitus 82171325 Hypothyroidism 09073338 No recent labs. Asked pt to update labs. Doing well clinically last labs Sep 2013. Cont Synthroid 175 mcg daily Panic diso rder without agoraphobia [id number] affects her ability to come to appointmen ts and adhere to dietary and lifestyle regimens. [id number] [facility] , [address] [address] 1 05/19/2014 14:31:42 05/19/2014 15:44:55 Uncontrolled type 1 diabetes mellitus [id number] Nancy Beltran LPN Endocr[facility], [address] [address] 1 07/20/2014 14:01:18 07/20/2014 14:58:33 Type 1 diabetes mellitus 44045614 Hypothyroidism 18819539 Cont Synthroid 175 mcg daily Panic diso rder without agoraphobia [id number] affects her ability to come to appointmen ts and adhere to dietary and lifestyle regimens. [id number] [facility] , [address] [address] 1 08/18/2014 13:31:11 08/18/2014 14:38:14 Type 1 diabetes mellitus 02090193 [id number] Nicol Alcala Endocrino logy, [address] [address] 1 05/13/2015 14:31:19 05/25/2015 08:36:13 Type 1 diabetes mellitus [id number] Pt arrived [facility] to [facility] and was seen but I told her I am needing time to look at CGM and talk with her further. She is accepting of this. Will call her at end of patient care hours today to discuss further and come up with a plan. Will call her on her cell. Thyroid continue current dosing of 200 mcg daily. ADDENDUM: reviewed logs at end of day and discussed case with Dr Gunn, who also knows the patient. Control is good as evidenced by her a1c of 6.7. (Goal less than 7). On CGM sugars generally to goal. Corrects appropriat miranda. Pt should not be using only the calibratio ns to guide glucose management but in past was testing excessivel y and correcting repeatedly resulting in lows. Although not ideal, this is one benefit of less testing, glucose is not over corrected. Pt called and told all this. no change to insulin regimen and will have her f/u in 4 months. Sooner if problems in the meantime. Asked her to update her labs since she is overdue. Hypothyroidism 60336637 Cont Synthroid 200 mcg daily Panic diso rder without agoraphobia [id number] affects her ability to come to appointmen ts and adhere to dietary and lifestyle regimens. [id number] Negar Sandoval PA-C Endocr[facility], [address] [address] 01/04/2016 13:50:44 01/04/2016 14:55:38 Type 1 diabetes mellitus 24301109 E10.65 Needing to update labs and will do so on way out. Need to contact [facility] to see how to get sensor back for pt so she can use. Will help dramatical ly with glucose control. Discussed trial of toujeo. Asked her to take 10 units at once in AM. Humalog -since going into 30-60 too much after correction with the 10 units for meals, asked her to drop back to 5-8 units with meals. If not going to bed low and having to eat before bed is causing high in AM. If not having to eat before bed then would not expect as high of glucose in AM. For correction between meals if is high adjust the scale she is using as follows: 100-150 is 4 units, 151-200 is 5 units , 201-250 is 6 units, 251-300 is 7 units. ADDENDUM: 01/05/16Cal led [facility]-s poke to Shilo Weeks- indicated pt needs to sign the form [facility] has [facility]. Called pt and aj her informatio n and asked her to send in form. I received CMN from [facility] after the visit and will send it in with this note. Pt had labs and results are back. See attached. A1c not to goal. Will benefit from resuming CGM. Concern right now remains lows and alleviatin g glucose in the 30-50 range. Will work on correcting highs better after lows are alleviated . Hypothyroidism 24388402 E03.9 Cont Synthroid 200 mcg daily. Await results from testing done today. ADDENDUM 01/05/16 TSH 0.3 and mildly suppressed . Was to send in 200 mcg dosing but will reduce dose to 175 mcg daily and repeat labs again in 6 weeks to assess dose change. Panic diso rder without agoraphobia 08160298 F41.0 affects her ability to come to appointmen ts and adhere to dietary and lifestyle regimens. [id number] Negar Sandoval PA-C Endocrino logy, [address] [address] 03/14/2016 14:02:07 03/14/2016 15:06:46 Type 1 diabetes mellitus [id number] E10.65 December A1c 7.2 Due for updated A1c in March.Lows in 30-40 are more concerning right now that the highs.Pt to continue Toujeo 10 units in AM.Reduce short acting insulin midday.Con t breakfast at 5-8 units plus scale.Osei ge lunch/midd ay correction for meals to 3-5 units plus scaleCont supper at same dosing as breakfastS nusrat 100-150 4 units and increase by 1 unit q 50 points.Deneen iting transmsitt er from [facility] and begin wearing CGM. Pt to call and check since paperwork has been completed. F/u in 4 months Hypothyroidism 20298301 E03.9 Cont Synthroid 175 mcg daily changed at December 2015 visit and pt due for labs. Will go way out today. Panic diso rder without agoraphobia 72181609 F41.0 affects her ability to come to appointmen ts and adhere to dietary and lifestyle regimens. [id number] Negar Sandoval PA-C Endocrino logy, [address] [address] 09/05/2016 13:55:29 09/07/2016 13:38:07 Type 1 diabetes mellitus 57526792 E10.65 Nov A1c 6.7 Goal 7 without lows. Pt has tendency to run low and has had hx of hypoglycem ic unawarenes s. Is using CGM which is helping with control and alerts her to lows.César nue but increase slightly to Toujeo 11 units in AM. Cont breakfast at 5-8 units plus scale. Change lunch/midd ay correction for meals to 3-5 units plus scaleCont supper 4-7 units (slightly lower since increased toujeo to better cover 2-7 am).Scale 100-150 4 units and increase by 1 unit q 50 points. F/u in 4 months PT given Novolog rx for after first of year since was informed by [employer] that Humalog will increase in [place] to $900 for her. Panic diso rder without agoraphobia [id number] F41.0 affects her ability to come to appointmen ts and adhere to dietary and lifestyle regimens. Hypothyroidism 60748546 E03.9 Cont Synthroid 175 mcg daily changed at December 2015 visit and pt due for labs. Will go way out today. [id number] Negar Sandoval PA-C Endocrino log[facility], [address] [address] 12/19/2016 13:47:40 12/19/2016 15:06:07 Type 1 diabetes mellitus 50819181 E10.65 Nov A1c 6.7 Goal 7 without lows. Needing to update labs. Pt has tendency to run low and has had hx of hypoglycem ic unawarenes s. Is using CGM which is helping with control and alerts her to lows. Looking at logs for past month, low most of the time during the day in 50-80 range. Is higher in AM. CGM download not available at today's visit since diasend not working. Will have her continue toujeo 11 units but want her to reduce her breakfast and lunch short acting by 1-2 units. She has improved her diet in past 2 days and this is likely also affecting lows.César nue Toujeo 11 units in AM. Reduce breakfast from 5-8 units plus scale to 3- 6 units plus scale and see if this helps with reduction of 60's in middle of the day. (Breakfast can be as late as 11am with her protein shake). Change lunch/midd ay correction for meals to 3-6 units plus scaleCont supper 4-7 unitsScale 100-150 4 units and increase by 1 unit q 50 points. F/u in 4 months. Would like pt to return in 4-6 weeks to check logs but she is not able and would prefer to return in 4 months. She is willing to call with blood glucose in a few weeks and asked her to keep food logs as well. Low BG at visit 64, pt had OJ and BG now 81. She is not driving. ADDENDUM: Nursing able to get CGM downloaded and attached after visit. She is generally in range but spikes are around breakfast and supper. Dropping low after correction s and felt to be over correcting . Agree with above recommenda tions for lowering breakfast and lunch correction and will see if does not have as many lows post meal. As stated above, she is not willing to come in short term for review secondary to transporta tion, copay and difficulty at times with anxiety and leaving the home. She knows to call with her blood glucose levels to evaluate the changes made above. CGM complete reports attached to visit. Hypothyroidism 33993316 E03.9 Need updated labs for thyroid and will do on way out. Cont Synthroid 175 mcg daily changed at December 2015 visit. Panic diso rder without agoraphobia [id number] F41.0 affects her ability to come to [facility] and adhere to dietary and lifestyle regimens. [id number] Negar Sandoval PA-C Endocr[facility], [address] [address] 04/24/2017 13:56:39 04/24/2017 14:43:50 Type 1 diabetes mellitus 28746809 E10.65 December A1c 5.8 Goal 7 without lows. Needing to update labs and plans to go on way out today. Changing company to [employer] for CGM per letter from [employer] office. Toujeo 11 units but change to PM so that peak at 6 hours is in night when glucose begins to rise. Would also increase by a unit to 12 units. Since having lows and wanting to increase long acting to better cover over night, will reduce short acting coverage since have lows during day. Reduce breakfast 2-4 units plus scalelunch /midday correction for meals to 2-5 units plus scale Cont supper 4-7 units plus scaleScale 100-150 4 units and increase by 1 unit q 50 points. F/u in 4 months. Would like pt to return in 4-6 weeks to check logs but she is not able and would prefer to return in 4 months. She is willing to call with blood glucose in a few weeks and asked her to keep food logs as well. Hypothyroidism 15871964 E03.9 Getting TSH and FT4 today to check dose change from January labs. Need updated labs for thyroid and will do on way out. Cont Synthroid 175 mcg one tab Sun-Sun and one and half tabs Sunday. Panic diso rder without agoraphobia 26813104 F41.0 affects her ability to come to appointmen ts and adhere to dietary and lifestyle regimens. [id number] Negar Sandoval PA-C Endocr[facility], [address] [address] 08/21/2017 13:48:23 08/21/2017 15:17:43 Type 1 diabetes mellitus 34121250 E10.65 April A1c 6.7 Goal 7 without lows. Needing to update labs and plans to go on way out today. Toujeo 10 units- taking in PM so that peak at 6 hours is in night when glucose begins to rise. May be what is causing lows in night now. Still having rise in AM. Lows in night could also be how she is correcting with short acting. It would be beneficial if she was able to see diabetes education to help refine her dosing. Will have her see Julee in diabetes education. In meantime A1c is to goal. Lows overnight are concerning . Would like her to set CGM to alarm at 90 so that not getting to 55 with CGM reading in 70's and alarm not going off yet since set to 70. Since is taking insulin with meals and snacks but last snack is 9:30pm and insulin is dropping her overnight asked her to stop insulin with snack for now. Will see if this gets rid of lows overnight. If it does, then can consider potential rise in toujeo at f/u to help with rise overnight. Novolog with meals- 10-4-4-0re view correction scale with diabetes education. Scale 100-150 4 units and increase by 1 unit q 50 points. F/u in 4 months. see diabetes education in meantime. TeSted glucose during visit and in 55, had juice and at end of visit 15 mintues later when checked was 60 at 2:56pmSee nursing not in vitals at 3:09 was 76, pt allowed to go to the lab, Father was driving since pt does not drive and she has additional snacks. Hypothyroidism 60840324 E03.9 Getting TSH and FT4 today. Need updated labs for thyroid and will do on way out. Cont Synthroid 175 mcg daily since April when TSH was suppressed . 08/24/17 ADDENDUM: labs returned TSH 14 with FT4 0.88 on synthroid 175 mcg daily but believe she is missing doses TSH was 0.12 on 175 mcg of T4 6 days a week and one and half tablets of 175 mcg on day 7. Would not expect her to have such a significan t drop if going down to 175 mcg daily. Will repeat labs again in 4 weeks. Order group separately placed. Panic diso rder without agoraphobia [id number] F41.0 affects her ability to come to [facility] and adhere to dietary and lifestyle regimens. [id number] Julee Roque, RN, BSN, [facility] DM Education , [address] [address] 09/05/2017 14:18:06 09/05/2017 16:32:20 Uncontrolled type 1 diabetes mellitus [id number] E10.65 Met with Cordelia today for diabetes education, kindly referred by EDITH Blackman. Cordelia has had Type 1 diabetes since she was 2 years old. She brought her meter and her Dexcom CGM for download and it appears she is having frequent hypoglycem ia, starting after before or after lunch. She tends to run slightly elevated in the morning and overnight, based on her CGM report, therefore, we discussed she should consider increasing her Toujeo to 11-12 units. She is also taking 4-6 units of Novolog before her main meals, 6-8 units with dinner and 3-4 units with snacks. She admits she corrects for high blood sugars even when she is having a snack or takes extra insulin to help prevent her blood sugars from running too high. She admits she prefers to have lower blood sugars instead of high blood sugars. She is more fearful of high blood sugars. She reports she is using a sliding scale for her NOvolog that she used when she was a child, a scale she has had since the 1970s and we discussed how this is likely not working well for her now and needs to be adjusted. Therefore, we reviewed how she might benefit from a Carbohydra te ratio and a correction factor. She was open to giving this a try. She was given a cheat sheet to follow with a Carb ratio of 1:14 grams and a Correction factor of 1:56 mg/dl if greater than 100 mg/dl, and her calculatio ns were based off of 32-36 units of insulin per day (based on her current weight and he current dose of insulin). She reports she is following a Nutrisyste m diet and is getting her meals sent via mail, which makes it easy for carbohydra te counting. We also reviewed carbohydra te counting so she could help figure out her carbohydra izaiah if she is not eating pre-packag ed foods. She has lost 20 lbs since February when she started the diet and we discussed how she is likely more sensitive to insulin from the weight loss. We also discussed insulin pump therapy because she would make a great candidate and because it is believed she might be stacking her insulin by injecting Novolog for all her meals and snacks. We discussed how it is safe to cover her food with insulin, however, she should only correct for a high blood sugar with her main meals and not with snacks to prevent that stacking. No other changes were made at this time. She verbalized understand ing and agreeing with plan. Reviewed the following: Disease Process: Goals of Treatment. Monitoring : Appropriat e times to test blood sugar and target blood sugars. Evaluation of blood glucose results and care of meter and strips. Pattern Management . Nutrition: Identifica tion of high carb foods, effects of carbs, carb counting and developing a meal plan. Label reading. Physical Activity: Introducti on to its importance . Effects of regular physical activity on blood sugars. Chronic Complicati ons: Introducti on to long-term effects, Importance of ABCs (A1c, Blood pressure and Cholestero l control) in limiting cardiovasc ular risk. Other strategies [facility]. Carbohydra te Ratio and Correction Factor: gave her a cheat sheet to follow and reviewed how to calculate her insulin dose based on her ratios. [id number] Julee Roque RN, BSN, [facility] DM [facility] , [address] [address] 11/07/2017 13:18:29 11/07/2017 14:36:48 Uncontrolled type 1 diabetes mellitus [id number] E10.65 Met with Cordelia today for diabetes education, kindly referred by EDITH Blackman. Cordelia has had Type 1 diabetes since she was 2 years old. She brought her meter and her Dexcom CGM for today and we could only download the meter. She reports she received a replacemen t transmitte r and ribbon inker for her Dexcom G5 and she has not been able to get it started because the transmitte r is not connecting to the ribbon inker. We called [employer] to trouble shoot and they plan to replace her transmitte r after asking her all the necessary questions. It appears she may have the transmitte r attached to 2 devices and this could be the problem. Only one transmitte r can communicat e with one ribbon inker. They will send her several replacemen t sensors as well since she tried to use them but it did not work for her. Her meter download reveals that she is testing her blood sugar 9 times in the last month. Her monthly meter average is 142 mg/dl. She is having about 49 low blood sugars in the last month and the main pattern that was noted with them was before lunch. She has had lows at dinner and bedtime and occasional ly overnight. She does not appear to have any first thing in the morning. She was encouraged to increase her Levemir at bedtime to 11 units since she is not having lows overnight often. She was encouraged to test her blood sugar occasional ly at 12 am to see how often she has had lows because it appears she has had 2 recently. She was also encouraged to decrease her Novolog at breakfast. She has been elevated at breakfast so she ends up correcting with up to 6 units and it appears to be too much. She was encouraged to try giving herself 4 or 5 units instead. No other changes were made at this time. She verbalized understand ing and agreeing with plan. Reviewed the following: Disease Process: Goals of Treatment. Monitoring : Appropriat e times to test blood sugar and target blood sugars. Evaluation of blood glucose results and care of meter and strips. Pattern Management . Physical Activity: Introducti on to its importance . Effects of regular physical activity on blood sugars. Chronic Complicati ons: Introducti on to long-term effects, Importance of ABCs (A1c, Blood pressure and Cholestero l control) in limiting cardiovasc ular risk. Other strategies for [facility]. [id number] Negar Sandoval PA-C Endocrino logy, [facility] [address] [place] [address] 02/05/2018 13:45:08 02/05/2018 14:50:13 Type 1 diabetes mellitus [id number] E10.65 RecommendI ncrease toujeo to 11 units to better cover highs overnight. She is dropping low at midnight because she is giving 7 units short acting for binge eating. Asked her to reduce this so that it does not drive her glucose so low at midnight and will allow the increase in long acting to not further exacerbate lows. Short acting dosing should beNovolog with meals- 4 to 5 units with breakfast and lunch and 2- 3 units with supper and 4 units with binge eating. Do not dose higher so that you do not have lows post supper that are further exacerbate d by night eating correction . Correction scale with diabetes education. Scale 100-150 4 units and increase by 1 unit q 50 points. F/u in 4 months. Cont with diabetes education in between visits for fine tuning of dosing where more sufficient time can be spent looking over patterns in detail. Next visit is February 2018 with Julee. Pt interested in pump features. No retinopath y, nephropath y, or neuropathy . Hypothyroidism [id number] E03.9 TSH coming down with regular medication dosing. Will update labs to ensure back to goal. Synthroid Brand 175 mcg daily. Panic diso rder without agoraphobia [id number] F41.0 affects her ability to come to appointmen ts and adhere to dietary and lifestyle regimens. Recurrent severe hypoglycemia [id number] E16.1 see above. CGM helps with prevention and improves control and monitoring for pt. [id number] Julee Roque, RN, BSN, [facility] DM Education , [facility] [place] [address] [place] [address] 03/07/2018 13:18:10 03/11/2018 12:56:12 Uncontrolled type 1 diabetes mellitus [id number] E10.65 Met with Cordelia tom for diabetes education, kindly referred by EDITH Blackman.-Diagno sed: Type 1 since 2 years old. -A1C: 6.0% in August. -Blood Sugars: Download of her meter reveals she is having a mix of high and low blood sugars. Her sensor download reveals she is having lows frequently in the middle of the night and her high blood sugars are occuring at 3 am, shortly after treating the lows that occur after 12 am. Her monthly meter average blood sugar is 123 mg/dl and her monthly sensor average is 138 mg/dl. -Hypoglyce eulalio: Overnight, while she is sleeping and some in the afternoon, after lunch and dinner. -Diet: She admits she is stress eating often, due to her job and she wanted more advice on how to eat healthy.-M edications : Toujeo 12 units once a day and Novolog before meals based on a scale she reports she is using from when she was first diagnosed (when she was a child). She could not provide the exact scale. 4-6 units before meals based on what she is eating and how her blood sugars is doing. -Recommend ations: Decrease Toujeo to 10 units once a day and consider using a carbohydra te ratio of 1:15 grams and a Correction factor of 1:60 mg/dl. She was given a cheat sheet to follow for dosing her Novolog. She verbalized understand ing and agreeing with plan. Reviewed the following: Disease Process: Goals of Treatment. Monitoring : Appropriat e times to test blood sugar and target blood sugars. Evaluation of blood glucose results and care of meter and strips. Pattern Management . Physical Activity: Introducti on to its importance . Effects of regular physical activity on blood sugars. Chronic Complicati ons: Introducti on to long-term effects, Importance of ABCs (A1c, Blood pressure and Cholestero l control) in limiting cardiovasc ular risk. Other strategies for [facility]. [id number] Julee Roque RN, BSN, [facility] DM Education , [address] [address] 05/15/2018 13:29:03 05/16/2018 14:10:36 Uncontrolled type 1 diabetes mellitus [id number] E10.65 Met with Cordelia tom for diabetes education, kindly referred by EDITH Blackman.-Diagno sed: Type 1 since 2 years old. -A1C: 6.0% in August, due is due for an updated A1C. -Blood Sugars: Download of her meter reveals she is having frequent lows during the night, followed by a rebound high blood sugar and then she drops again after breakfast. She is fairly stable during the day with lows at 12 pm, 6 pm and 12 am. Refer to sensor and meter download. Her meter download reveals she is testing 2-3x/day and her average blood sugar is 132 mg/dl. Her sensor download reveals her average blood sugar for the last month was 158 mg/dl.- t: She admits she is stress eating often, due to her job and admits she has gained a lot of weight, which she is upset about.-Med ications: Toujeo 10 units once a day and Novolog before meals based on a scale she reports she is using from when she was first diagnosed (when she was a child). She could not provide the exact scale. 4-6 units before meals based on what she is eating and how her blood sugars is doing. -Recommend ations: Decrease Toujeo to 9 units once a day and she asked for the carbohydra te ratio and correction scale that was given to her last visit so she can give this a try. We agree that she is giving herself too much insulin. She admits she is more afraid of high blood sugars and prefers to have lows because she believes she can control them better with juice. However, we discuss the concerns with low blood sugars in the long run too and how they can affect her. She is also starting to feel them less and we discussed that this could cause a severe low blood sugar. We also discussed how she will likely lose weight if she is having episodes of hypoglycem ia. We also discussed insulin pump therapy. She would make an excellent candidate and would benefit from a 670G pump. She is willing to keep a 1 week record of her food and carbohydra te intake at her next visit so we can prepare her for pump therapy. She verbalized understand ing and agreeing with plan. Reviewed the following: Disease Process: Goals of Treatment. Monitoring : Appropriat e times to test blood sugar and target blood sugars. Evaluation of blood glucose results and care of meter and strips. Pattern Management . Physical Activity: Introducti on to its importance . Effects of regular physical activity on blood sugars. Chronic Complicati ons: Introducti on to long-term effects, Importance of ABCs (A1c, Blood pressure and Cholestero l control) in limiting cardiovasc ular risk. Other strategies for [facility]. [id number] Negar Sandoval PA-C Endocrino logy, [address] [address] 08/20/2018 13:55:18 08/20/2018 14:48:38 Type 1 diabetes mellitus [id number] E10.65 Pt expressing not clear lately and is reacting to her CGM. This is causing low glucose over night and post supper. Then to treat the low she eats. Then when she sees the CGM go up she gives a large amount of insulin and drops between 1-3 am. Discussed that have to figure out how to not react to arrows on CGM with large amount of insulin. Suggest she give half of what she usually gives for supper (instead of 7-10 give 4-7) And for night rises in glucose, only correct with 4 units the most. with night snacks instead of 10 units in reaction to rising CGM.Will focus on this part of the day over the next month to see if can alleviate overnight lows. Keep follow up with Julee to help work on continued changes and how to deal with emotional impulse F/u in 4 months. No retinopath y, nephropath y, or neuropathy . Hypothyroidism [id number] E03.9 Needing to update labs. Asked her to go on the way out today. If need to adjust medication then will contact pt. Synthroid Brand 175 mcg daily. Panic diso rder without agoraphobia [id number] F41.0 affects her ability [facility] and adhere to dietary and lifestyle regimens. Is seeing [facility] for Diabetes Education which helps. Recurrent severe hypoglycemia [id number] E16.1 CGM helps with prevention and improves control and monitoring for pt. [id number] Julee Roque, RN, BSN, [facility] DM Education , [facility] [place] [address] [place] [address] 10/10/2018 13:20:22 10/16/2018 08:15:17 Uncontrolled type 1 diabetes mellitus [id number] E10.65 Met with Cordelia tom for diabetes education, kindly referred by EDITH Blackman.-Diagno sed: Type 1 since 2 years old. -A1C: 6.6% in August, slightly up from 6.0% in August of 2017. -Blood Sugars: Download of her Dexcom sensor reveals she is having frequent lows during the night, from midnight until about 2:30 am. She is having 10% lows; 54% blood sugars in target range and 37% of her blood sugars are above target.-Ale palma is wearing the Dexcom G5. -She believes the cause of her lows are from over stacking insulin and taking insulin when her blood sugar starts to spike, rather than taking insulin before she eats. -She is also having lows between 3-6 pm and around 11pm-12 am. -She is terrified of highs. Is worried about going to the hospital from a high. We cleared up the reasons why she may end up in the hospital for a high blood sugar (due to DKA) and she has a better understand ing. -She prefers to have lows over highs, she admits.-Ho wever, we also discussed how she is unhappy with her weigh gain and we discussed that if we can eliminate the lows, she will like lose weight.-Di et: She admits she is stress eating often, due to her job and admits she has gained a lot of weight. We discussed ways for her to be more mindful with eating and her diet.-Medi cations: Toujeo 10 units once a day and Novolog before meals based on a scale she reports she is using from when she was first diagnosed (when she was a child). She could not provide the exact scale. 4-6 units before meals based on what she is eating and how her blood sugars is doing. Recommenda tions: -Take insulin before you eat, 5-10 minutes before you eat so the insulin is already working in your system before your blood sugar starts to spike. -Do not overestima te carbohydra izaiah with meals and try not to stack short acting insulin with meals by only giving it every 4 hours.-Sta rt small goals with exercise to help you feel better emotionall y. Use an indoor bicycle while watching TV for 5-10 minutes. Start off slow and than gradually work your way up. -You can eventually aim for 30 minutes 5 x/week to help with overall health.-De crease Toujeo to 9 units once a day.-César nue to give Novolog before meals based on a Carb Ratio of 1:15 grams and Correction factor of 1:50 mg/dl, if greater than 100 mg/dl.-Use the cheat sheet to dose your Novolog before meals. Reviewed the following: Disease Process: Goals of Treatment. Monitoring : Appropriat e times to test blood sugar and target blood sugars. Evaluation of blood glucose results and care of meter and strips. Pattern Management . Physical Activity: Introducti on to its importance . Effects of regular physical activity on blood sugars. Chronic Complicati ons: Introducti on to long-term effects, Importance of ABCs (A1c, Blood pressure and Cholestero l control) in limiting cardiovasc ular risk. Other strategies for [facility] [employer] [facility]. [id number] Julee Roque RN, BSN, [facility] DM Education , [address] [address] 01/29/2019 13:25:55 01/30/2019 11:04:04 Uncontrolled type 1 diabetes mellitus [id number] E10.65 Met with Cordelia tom for diabetes education, kindly referred by EDITH Blackman. -Diagnosed : Type 1 since 2 years old. -A1C: 6.6% in August, slightly up from 6.0% in August of 2017. -Blood Sugars: Download of her Dexcom sensor reveals she is having frequent lows during the night, from midnight until about 2:30 am. She is having 12% lows; 59% blood sugars in target range and 37% of her blood sugars are above target. -She is wearing the Dexcom G5. -She is very unhappy about her weight gain and she decided to joint Nutrisyste m since she has had luck in the past. -She brought packages of her food items and we discussed how she will be able to take her insulin based on carbohydra te counting. Most of her Nutrisyste m meals are 33-36 grams of carbohydra izaiah. -Current medication s: Toujeo 7 units once a day and Novolog based on a scale that she continues to use in the past. She is averaging about 32-35 units per day. -She questions if switching the Toujeo at another time of day might help with the overnight lows and we decided to give it a try. She is going to switch her Toujeo dose to the morning to see if that helps. Recommenda tions: -Switch Toujeo 7 units to the morning. -Yesterday , you took 7 units in the evening. -Tonight, take 4 units, tomorrow morning take 3 units -Sunday before Breakfast, start taking 7 units again and resume this new schedule. -If you continue to have lows during the day, then we need to decrease your dose of Toujeo again. -Consider using the Carb ratio and Correction factor for Novolog before meals and snacks: 1 unit for 14 grams of carbs and 56 mg/dl if greater than 100 mg/dl. -Use the cheat sheet to dose your Novolog before meals. -Please call with any questions or concerns. Reviewed the following: Disease Process: Goals of Treatment. Monitoring : Appropriat e times to test blood sugar and target blood sugars. Evaluation of blood glucose results and care of meter and strips. Pattern Management . Physical Activity: Introducti on to its importance . Effects of regular physical activity on blood sugars. Chronic Complicati ons: Introducti on to long-term effects, Importance of ABCs (A1c, Blood pressure and Cholestero l control) in limiting cardiovasc ular risk. Other strategies for [facility]. [id number] Julee Roque RN, BSN, [facility] DM Education , [address] [address] 05/14/2019 13:20:17 05/14/2019 15:31:38 Uncontrolled type 1 diabetes mellitus [id number] E10.65 Met with Cordelia tom for diabetes education, kindly referred by EDITH Blackman. She is now seeing Dr. Gunn again. -Diagnosed : Type 1 since 2 years old. -A1C: 6.3% in January; it is down from 6.6% in August. -Blood Sugars: Download of her Dexcom sensor reveals she is having frequent lows overnight between the hours of 12 am- 2 am. She then runs higher than 180 from 3 am-9 am. Between the hours of 9 am-6 pm, they still fluctuate, however they are more stable, before she starts running low again after 6 pm until 12 am. -Due to this pattern, we dropped her Toujeo dose to 5 units from 6 units and she was encouraged to take 1 unit less of Novolog at dinner time since she is using her own scale at dinner time. She is not currently using the scale to count carbohydra izaiah or give a correction . -It also appears that she is likely stacking her Humalog insulin since she is taking it almost every 2 hours with her food and when her blood sugar is elevated. We discussed how it might be best to take it every 3-4 hours instead of every 2 hours.-Rev iewed with her how she might benefit from a Ronel Echo pen, because it can help keep track of her doses of Novolog.-S he continues to want to lose weight and feels as though she has hit a plateau. We discussed how her frequent lows could be preventing her from losing further weight.-Wi ll send a RX to Dr. Gunn for the Ronel Echo pen to help her keep track of her short acting insulin doses. Reviewed the following: Disease Process: Goals of Treatment. Monitoring : Appropriat e times to test blood sugar and target blood sugars. Pattern Management . Physical Activity: Introducti on to its importance . Effects of regular physical activity on blood sugars. Reviewed Novolog insulin and it's peak, action and duration. Reviewed prevent of hypoglycem ia if not stacking insulin. [id number] Benny Gunn MD Endocrino logy, [facility] [place] [address] [place] [address] 07/17/2019 14:18:58 07/18/2019 06:22:38 Type 1 diabetes mellitus [id number] E10.9 On Toujeo 5 units- recently changed to AM to try and help reduce highs that she thought was causing AM highs. Uses novolog with meals.Makenzie ellington lows post-dinne r but also overnight (2-3AM- some of which aren't following lows).Osei ged Toujeo to AM from PM. Nutrasyste ms- hasn't been on it for past couple of weeks ($$).Not having specified meals makes it harder.7 units for pizza. Suggest:- Using less short-acti ng insulin, especially at dinner.- Meet with dietitian to review CHO counting and doses of short acting insulin. EYES: Due in 2019. No problems in past.NEURO : Feet goodRENAL: No microalbum in. Normotensi veCV: LDL= 104 but only 43 y.o. will wait but may have her go on statin in next few years. Hypothyroidism [id number] E03.9 On 175 mcg SynthroidT SH= 3.5 (06/05)Clin ically doing well. Panic diso rder without agoraphobia [id number] F41.0 Affects her ability to come to appointmen ts and adhere to dietary and lifestyle regimens. Recurrent severe hypoglycemia [id number] E16.1 Worrisome because of frequency and duration.A dds complexity . Obesity [id number] E66.9 Integrated nutrition visit with Salma Crain, RD 07/17/19 to try to evaluate BG highs and lows during the night. Discussed Nutrisyste m and the predictabi lity and peace of mind it has helped her have re: reducing anxiety in meal planning; she is under goal at A1C of 6.1 and has lost about 30 lb past year. Plans to resume Nutrisyste m for now. Salma suggested she aim for 45 gm carb at dinner and 15-20 gm carb with wily snack, along w/ at least 20 gm protein at dinner and 4-5 gm with snack -- to see how middle of the night numbers respond. To keep a food diary recording all intake include carb grams, which can be evaluated with Julee Roque comparing with CGM at 08/21/19 Diabetes ed appt. Nutrition appt booked for 09/15 with addition to wait list for earlier opening. See integrated case for more detail. Obesity code utilized for this visit. Please send in nutrition referral. [id number] Julee Roque, RN, BSN, [facility] DM Education , [facility] [place] [address] [place] [address] 09/25/2019 13:25:14 09/29/2019 10:37:20 Uncontrolled type 1 diabetes mellitus [id number] E10.65 Met with Cordelia today for diabetes education, kindly referred by EDITH Blackman. She is now seeing Dr. Gunn. -Diagnosed : Type 1 since 2 years old. -A1C: 6.1% in May; down from 6.3% in January. She is due for an updated A1C. -Blood Sugars: Download of her Dexcom sensor reveals she is having frequent lows, about 13% of her blood sugars are low.-Her monthly meter average for the last 30 days was 144 mg/dl. She has 26% above target range; 60% in target range and 13% below target range.-The trend that is noted is blood sugars below 180 mg/dl from 12 am until 6 am. Then she is elevated closer to 300 mg/dl from 6 am until 9 am, however, she is also having hypoglycem ia between 5 am and 7 am. She is then below 180 mg/dl for the rest of the day from 9 am until 12 am again.-Her low blood sugar trends are occuring multiple times during the day and overnight: between 12-1 am; 3 am; 6 am; between 1 pm until 4 pm; 7 pm, between 8-9 pm and between 10 pm until 12 am.-She reports she has stopped taking her Toujeo about a month ago due to low blood sugars. She continues to take 7 units of Novolog with meals and follows an old scale that she was given in the past (closer to when she was diagnosed) .-Reviewed the importance of not stacking her insulin to prevent hypoglycem ia.-Review ed how she should still be on a small dose of Toujeo to prevent DKA.-She was encouraged to lower her dose of Novolog with meals from 7 units to 5 or 6 units.-She was also encouraged to record her dose of insulin into her sensor so that we can see when she is dosing it in the future. Reviewed the following: Disease Process: Goals of Treatment. Monitoring : Appropriat e times to test blood sugar and target blood sugars. Pattern Management . Physical Activity: Introducti on to its importance . Effects of regular physical activity on blood sugars. Reviewed Novolog insulin and it's peak, action and duration. Reviewed prevent of hypoglycem ia if not stacking insulin. [id number] Salma Crain RD, LDN Nutrition -[address] [address] 10/30/2019 13:00:14 10/31/2019 18:09:24 Type 1 diabetes mellitus [id number] E10.9 Nutrition Diagnosis: {{Excessiv e oral intake (NI 2.2) Exces sive fat intake (NI 5.6.2) [place] ppropriate Intake of fats (NI 5.6.3) Exc essive carbohydra te intake (NI 5.8.2) [place] ppropriate intake of types of carbohydra te (NI 5.8.3) Inc onsistent carbohydra te intake (NI 5.8.4)* In adequate fiber intake (NI 5.8.5) Alt ered nutrition related laboratory values (NC 2.2) Overw eight/obes ity (NC 3.3) Unint ended weight gain (NC 3.4) Food and nutrition related knowledge deficit (NB 1.1) Not ready for diet/lifes tyle changes (NB 1.3) Self monitoring deficit (NB 1.4) Limit ed adherence to nutrition related recommenda tions (NB 1.6) Nutri tion diagnosis no longer appropriat e}} related to: {{psycholo gical causes, specifical ly emotional eating with irregular intake related to depression , ADHD# food and nutrition related knowledge deficit, specifical ly? lack of food planning, purchasing and preparatio n skills psy chological causes, specifical ly? physiolo gical causes requiring timing and consistenc y of carbohydra izaiah lack of willingnes s to modify previous nutrition recommenda tions inap propriate food preparatio n practices inability or unwillingn ess to purchase or consume fiber containing foods econ omic constraint s that limiting appropriat e foods phys ical inactivity not ready for diet/lifes tyle changes ex cessive energy intake lac k of prior exposure to accurate nutrition- related informatio n prior exposure to incorrect informatio n inapprop riate intake of concentrat ed sweets and refined carbohydra izaiah chroni c use of medication known to cause weight gain loss of appetite awareness medication s that increase appetite, e.g. unwil ling or disinteres david in reducing l ack of or limited access to healthful food choices fo od and nutrition compliance limitation s}} as evidenced by: self-repor david dietary recall, frequent hypoglycem ic and hyperglyce tena events, binge eating, with A1C at goal at 6.1 and BMI > 31 Assessment Summary: Initial nutrition visit for 44 y.o. with poorly controlled Type 1 DM after previous visit in 2011 to [facility]. She expresses frustratio n at her emotional state getting in the way of eating regularly, cooking, and controllin g cravings. See download of CGM and meter. Reinforced carb counting basics, and importance of including significan t protein sources 3 times a day plus in wily. Portion control of carbs and carb limits when correcting her lows were reviewed. Wants to lose about 20-25 lb toward the low 170's weight range. Could benefit from a structured meal service plan as she had with Camilo day. She has a follow up with Julee Roque 12/10/19 and plans to schedule a nutrition f/u in December; not sure of her schedule yet. Pt Instructed in: - carb food sources and consistent carb eating 30-45 gm per meal, 15-20 gm per snack - estimated calorie & nutrient needs: 1300 kcal/day for slow gradual weight loss - recommenda tion to include 20 gm carb plus protein in the wily and restrict amount of night-time eating - appropriat e portion sizes and how to measure, count out, or estimate - reading nutrition facts labels for carbs - importance of regular physical activity - SMART goal setting and identifyin g and overcoming barriers to change Handouts: Put the brakes on night-time eating; carb counting lists; Planning healthy meals; Mindful eating: get out of autopilot; Diabetes, depression and stress (C4care); Diabetes and exercise; Diabetes friendly snacks; WebMD portion sizes, blank food and blood glucose record forms Time spent counseling : 60 minutes [id number] Benny Gunn MD Endocrino logy, [facility] [place] [address] [facility] [place] [address] 01/29/2020 08:21:41 02/02/2020 07:19:35 Uncontrolled type 1 diabetes mellitus [id number] E10.65 A1c= 6.1 (06/05)Base d on her descriptio n, likely high (no recent a1c).Snack ing at night with highs overnight but coming back down towards midday. Consistent with CGM, has continued to have some highs after dinner but also large spikes at MN and even 3AM. But also had some lows between MN and 3AM (likely over-corre cting for snacking). - Emphasis may need to be on reducing snacking but also better match of short acting to what she's eating. Would benefit from f/u with CDE and RD (case sent to J[facility]). Had done well on Nutrasyste ms- feels structure helped her balance ADD and was able to lose weight.Now off and lots of snacking in evening. EYES: Exam in 2019. No problems in past. NEURO: Feet good in past RENAL: No microalbum in. Normotensi ve in past CV: LDL= 104 but only 43 y.o. will wait but may have her go on statin in next few years. Refill per pt request glucagon 02/03.stand ing orders updated 02/03. Hypothyroidism 44855090 E03.9 On 175 mcg SynthroidT SH= 3.5 (06/05)Clin ically doing well. Update labs and then will send Rx. Panic diso rder without agoraphobia [id number] F41.0 Affects her ability to [facility] and adhere to dietary and lifestyle regimens. [id number] Benny Gunn MD Endocrino logy, [address] [address] 08/26/2020 07:47:09 08/31/2020 06:54:21 Hypothyroidism 47500384 E03.9 On 175 mcg Synthroid TSH= 3.76 (05/06); was 3.5 (06/05) Clinically doing well. Update labs and then will send Rx. Obesity 090156536 E66.9 On Nutrasyste m which she has used with success. Type 1 monica betes mellitus 42563828 E10.9 On Toujeo 5 units- has been trying different times of day to help reduce highs overnight. Uses novolog with meals. Having lows post-dinne r but also overnight (2-3AM- many of which follow lows or borderline lows after dinner). She has tried moving Toujeo from AM to PM but that doesn't seem to be having much impact. Had done well on Nutrasyste ms- feels structure helped her balance ADD and was able to lose weight. Suggest: - Move Toujeo back to AM but reduce dose. - Reduce Novolog to not more than 5 units pre-dinner . Diet has been an issue in past. Has done well on Nutrasyste ms- was not doing due to $$. Trying to get back on tract with Nutrasyste ms. EYES: OK in 2019 . No problems in past. NEURO: Feet good in past RENAL: No microalbum in. Normotensi ve CV: LDL < 100 in past; Refill per pt request glucagon 02/03. standing orders updated 02/03. Panic diso rder without agoraphobia [id number] F41.0 Affects her ability to come to appointmen ts and adhere to dietary and lifestyle regimens. Hypoglycemia [id number] E 16.2 Very frequent (with several days having prolonged time with low values). These tend to occur after dinner and set patient up for overnight hyperglyce eulalio They are also potentiall y very dangerous. Goal is to decrease frequency and duration of lows. May help reduce rebound hyperglyce eulalio overnight. [id number] Benny Gunn MD Endocrino logy, [facility] [place] [address] [place] [address] 03/10/2021 13:43:11 03/10/2021 16:27:04 Uncontrolled type 1 diabetes mellitus [id number] E10.65 A1c= 6.3 (03/07 and 05/06); was 6.8 (03/06); was 6.1 (06/05) Poor control is based on CGM tracings with significan t hyperglyce eulalio overnight along with several episodes of hypoglycem ia. CGM shows large spikes after MN and even 3AM. Individual days tends to show highs are rebounds from lows (but not always). Pt. has been carefully following Nutrasyste m and denies any snacking after MN (has Nutrasyste m snack around 9-10PM- occ uses 3-4 units but not always). 03/07: Stopped Toujeo which seems like it would have more negative consequenc es than it has had.Likely doing OK during day because eating something q 2 hours and giving short-acti ng q 2 hours. Would like to get her back on small dose of long-actin g. That means cutting back on short-acti ng. Suggest:(C urrently using about 23-25 total units per day)Toujeo 3 units at dinner. (expect this may be able to increase). Novolog- use only 3-4 with meals.Only 1-2 with snack.This will be total of 15 units per day- may well need some additional .Expect we will go up on the insulin in 1-2 weeks when able to see pattern. F/U Julee- 2 weeks.- Review 2 weeks of CGM to see if she is having fewer lows in evening and fewer highs from 1-4 AM. She has done well on Nutrasyste ms in the past- feels structure helped her balance ADD and was able to lose weight.Don 't want to take this away if possible. EYES: Exam in 2020. No problems in past. NEURO: Feet good in past RENAL: No microalbum in. Normotensi ve in past CV: LDL= 104 but only 43 y.o. will wait but may have her go on statin in next few years. Hypothyroidism 50073477 E03.9 On 175 mcg Synthroid TSH= 4.36 (03/07); was 3.76 (05/06); was 3.5 (06/05) Clinically doing well but aware that TSH is creeping upward. Monitor labs and adjust dose prn. Obesity 468501286 E66.9 On Nutrasyste m which she has used with success. Type 1 monica betes mellitus 40063158 E10.9 OFF Toujeo since around 12/2020. Tried different times of days but felt it was contributi ng to lows with rebound highs overnight. Uses novolog with meals and snacks on Nutrasyste m (essential ly something every 2 hours).Eleazar l re-start Toujeo at low dose (3 units) at dinner.Cut back on Novolog with meals and also with snacks from Nutrasyste m. Had done well on Nutrasyste ms- feels structure helped her balance ADD and was able to lose weight. EYES: OK in 2019 . No problems in past. NEURO: Feet good in past RENAL: No microalbum in. Normotensi ve CV: LDL < 100 in past; Hypoglycemia 050222277 E 16.2 Very frequent (with several days having prolonged time with low values). These tend to occur after dinner and set patient up for overnight hyperglyce eulalio They are also potentiall y very dangerous. Goal is to decrease frequency and duration of lows. May help reduce rebound hyperglyce eulalio overnight. There is a current and ongoing significan t concern for the this patient's risk for severe hypoglycem ia causing serious health consequenc es. Panic diso rder without agoraphobia 47619866 F41.0 Affects her ability to [facility] and adhere to dietary and lifestyle regimens. [id number] Benny Gunn MD Endocrino logy, [facility] [place] [address] [place] [address] 09/15/2021 13:49:31 09/18/2021 13:33:10 Obesity 813504624 E66.9 Previously used Nutrasyste m with success.- not using as much. More depression and comfort foods at holidays. Uncontroll ed type 1 diabetes mellitus 790746019 E10.65 No recent labs: A1c= 6.3 (03/07 and 05/06); was 6.8 (03/06); was 6.1 (06/05)Alth ough her a1c is officially at target, she has evidence of poor control based on CGM tracings with significan t hyperglyce eulalio overnight along with several episodes of hypoglycem ia. CGM shows large spikes after MN and even 3AM. Individual days tends to show highs are rebounds from lows (but not always). 09/06: Using Nutrasyste m less. More depression and comfort foods at holidays. Would like to get her back on small dose of long-actin g.Tried toujeo but felt it gave her too many lows during day (likely hadn't cut back short-acti ng enough but still her perception ). EYES: Exam in 2020. No problems in past.NEURO : Feet good in pastRENAL: No microalbum in. Normotensi ve in pastCV: LDL= 78 (03/07); was 104 but only 43 y.o. will wait but may have her go on statin in next few years. Suggest:Tr y NPH at HS.Start with 10 units. Send case to Julee to see about following up in 4-6 weeks. Hypothyroidism 83002939 E03.9 On 175 mcg Synthroid TSH= 4.36 (03/07); was 3.76 (05/06); was 3.5 (06/05) Clinically doing well but aware that TSH is creeping upward. Monitor labs and adjust dose prn. Hypoglycemia 325279022 E 16.2 Very frequent (with several days having prolonged time with low values). These tend to occur at several times during day (often after meals but also overnight. They are potentiall y very dangerous. Goal is to decrease frequency and duration of lows. May help reduce rebound hyperglyce eulalio overnight. There is a current and ongoing significan t concern for the this patient's risk for severe hypoglycem ia causing serious health consequenc es. Panic diso rder without agoraphobia 29126104 F41.0 Affects her ability to come to appointmen ts and adhere to dietary and lifestyle regimens. [id number] Julee Roque RN, BSN, [facility] , [address] [phone] 10/19/2021 11:06:50 10/20/2021 14:16:27 Uncontrolled type 1 diabetes mellitus [id number] E10.65 -Virtual Visit with Cordelia over the phone. Does not have access to camera.-Ki ndly referred by Dr. Gunn for diabetes education. -Diagnosed : Type 1 since 2 years old. -Last A1C: 6.3% in February. She is due for an updated A1C. -Sensor Download reveals:Av erage glucose is 141 mg/dl for the last month.61% are in target range; 15% are above 180 mg/dl; 9% are above 250 mg/dl; 9% are below 70 mg/dl; and 6% are below 50 mg/dl. -The main trend are hypoglycem ia between 9:30 pm until about 3 am. Then she has a spike in her glucose between 3 am until 6 am. Having other drops in her blood sugar during the day, however, it is most noted between 3 pm and 9 pm. -Admits that her job has become a very large stress due to a shift in her schedule. She is exhausted all the time and wants to nap as soon as she gets home from work. -Current Medication :NPH in the evening, 11 units at 10:30- 11 pm.Novolog before meals: 5-8 units based on food intake and blood sugar. She figures the dose out herself. -When she is on Nutrisyste m, she eats every 2 hours, having a small snack between meals. She does take insulin with all her snacks (a few 3-4 units with snacks). -Reviewed how she might benefit from an Inpen to help prevent her from stacking her insulin. It is likely she is stacking her insulin the afternoon. -Reports she feels paranoid when she does not have the sensor. Was out of supplies for the sensor for 2 weeks and is worried about hypoglycem ia.-No major events with hypoglycem ia.-She does recognize her symptoms, however, she feels she is notified sooner when she wears the sensor. -PLAN: Drop the dose of NPH to 9 units from 11 units due to the overnight lows. If we can help elliminate the low glucose, then she will likely have less of the spiking after treating the low. We discussed how she would benefit from an Inpen and she does have a smart phone to use the conrado on. Overall, she is doing very well, however, we hope to elimiate the low glucose so that she does not have the sudden spiking in her blood sugar. Reviewed the following: Inpen and benefits of having it to prevent stacking of insulin. [id number] Julee Roque RN, BSN, [facility] , [address] [address] 12/28/2021 14:41:56 12/28/2021 16:22:49 Uncontrolled type 1 diabetes mellitus [id number] E10.65 -Virtual Visit with Cordelia over the phone. Does not have access to camera.-Ki ndly referred by Dr. Gunn for diabetes education. -Diagnosed : Type 1 since 2 years old. -Last A1C: 6.3% in February 2021. She is due for an updated A1C and plans to get this done before her appt with Dr. Gunn in February. -Sensor Download reveals:Av erage glucose is 141 mg/dl for the last month.64% are in target range; 18% are above 180 mg/dl; 6% are above 250 mg/dl; 8% are below 70 mg/dl; and 4% are below 50 mg/dl. -The main trend are hypoglycem ia after most meals and also having spikes of her blood sugars after meals as well.-Pt does admit to giving more doses of Novolog when her glucose remains high. We discussed how she could be stacking her insulin.-R eviewed the Inpen and how this might really help figure out her doses of Novolog better for her, especially if we know when she is injecting her insulin, how much and how often. -Current Medication :NPH in the evening, 10 units.Ronel log before meals: 5-8 units based on scale that she used when she was 2 years old. -Her weight has increased and she is now over 200 lbs. She is not doing Nutrisyste m right now. -Reviewed how she would benefit from an Inpen to help prevent her from stacking her insulin. It is likely she is stacking her insulin after meals. -PLAN: Send a RX for the Inpen to deliver the Novolog. She is likely stacking the Novolog insulin with meals due to the low glucose that occurs after most of her meals and it is occurring almost daily. She was also encouraged to enter in her doses of Novolog before meals into the Dexcom under events . No other changes made at this time. Reviewed the following: Inpen and benefits of having it to prevent stacking of insulin. [id number] Benny Gunn MD Endocrino logy, [address] [phone] 09/07/2022 13:56:19 09/12/2022 14:41:42 Uncontrolled type 1 diabetes mellitus [id number] E10.65 Labs drawn today (09/07) A1c= 6.2 (01/06); was 6.3 (03/07 and 05/06); was 6.8 (03/06); was 6.1 (06/05)Alth ough her a1c is officially at target, she has evidence of poor control based on CGM tracings with significan t hyperglyce eulalio overnight along with several episodes of hypoglycem ia. CGM shows many prolonged lows o/n. Need to address this first.- Decrease levemir from 11 -> 8.- Has some highs in PM. Try increasing short-acti ng at dinner but leave bkffst and lunch as is for now.- Review uploaded CGM in 4-6 weeks. Previously was on Toujeo but that gave her too many lows during day (likely hadn't cut back short-acti ng enough but still her perception ).Had tried her on NPH but she got switched to Tresiba when in rehab following ankle fx.May come back to this if frequent lows persist. EYES: No problems in past.NEURO : Feet good in pastRENAL: No microalbum in. Normotensi ve in pastCV: LDL= 78 (03/07); was 104 but only 43 y.o. will wait but may have her go on statin in next few years. Hypothyroidism 13497951 E03.9 On 175 mcg Synthroid TSH= 13.9 (01/06); was 4.36 (03/07); was 3.76 (05/06); was 3.5 (06/05) Labs updated today (09/07).Ch lexi results and adjust dose prn.(Much better to use dose as one pill daily; has trouble with fractions of pills on different days) Overall: Monitor labs and adjust dose prn. Hypoglycemia 237088375 E 16.2 Very frequent (with several days having prolonged time with low values).Hy poglycemia is a serious medical problem with consequenc es affecting her health. Nearly 15% on CGM (09/07).Th david tend to occur frequently overnight but also can occur at other times during day.Goal is to decrease frequency and duration of lows. May help reduce rebound hyperglyce eulalio overnight. - Cut back levemir and try to have her use more short-acti ng with meals. There is a current and ongoing significan t concern for the this patient's risk for severe hypoglycem ia causing serious health consequenc es. Panic diso rder without agoraphobia 09431249 F41.0 Affects her ability to come to appointmen ts and adhere to dietary and lifestyle regimens.A lso has ADHD which interferes with following complex regimens. [id number] Benny Gunn MD Endocrino log[address] [address] 02/15/2023 13:55:40 03/15/2023 08:25:43 Uncontrolled type 1 diabetes mellitus [id number] E10.65 Labs updated today (03/09) after visit. A1c= 6.3 (09/07); was 6.2 (01/06); was 6.3 (03/07 and 05/06); was 6.8 (03/06); was 6.1 (06/05)Alth ough her a1c is officially at target, she has evidence of poor control based on CGM tracings with significan t hyperglyce eulalio overnight along with several episodes of hypoglycem ia. CGM shows frequent (some prolonged) lows o/n. Need to address this first.- Decrease levemir from 10-> 8.- Try increasing short-acti ng especially bkfst once fewer o/n lows- Review CGM in 4-6 weeks. (upload) At one point, had been on NPH but she got switched to Tresiba when in rehab following ankle fx.May come back to this if frequent lows persist. EYES: No problems in past.NEURO : Feet good in pastRENAL: No microalbum in. Normotensi ve in pastCV: LDL= 58 (03/09) was 93 (09/07) was 78 (03/07); was 104on simva 10. Hypoglycemia 908769262 E 16.2 Had low in office (03/09)- helped assess and treat. Very frequent (with several days/night s having prolonged time with low values).Hy poglycemia is a serious medical problem with consequenc es affecting her health. Nearly 12% (03/09); was 15% on CGM (09/07).Th david tend to occur frequently overnight but also can occur at other times during day.Goal is to decrease frequency and duration of lows. May help reduce rebound hyperglyce eulalio overnight. - Cut back levemir and try to have her use more short-acti ng with meals. There is a current and ongoing significan t concern for the this patient's risk for severe hypoglycem ia causing serious health consequenc es. Hypothyroidism 61608223 E03.9 On 175 mcg Synthroid TSH= 6.81 (09/07); was13.9 (01/06); was 4.36 (03/07); was 3.76 (05/06); was 3.5 (06/05) Labs updated today (03/09) after visit.Chec k results and adjust dose prn.(Much better to use dose as one pill daily; has trouble with fractions of pills on different days) Overall: Monitor labs and adjust dose prn. Panic diso rder without agoraphobia 17966653 F41.0 Affects her ability to come to appointmen ts and adhere to dietary and lifestyle regimens.A lso has ADHD which interferes with following complex regimens. Obesity 171919797 E66.9 BMI up to 34 (03/09). Previously used Nutrasyste m with success. [id number] Benny Gunn MD Endocrino logy, [address] [phone] 09/13/2023 14:03:06 09/24/2023 09:11:52 Uncontrolled type 1 diabetes mellitus [id number] E10.65 Labs updated today (09/08) after visit. A1c= getting today (09/08); was 6.3 (03/09 and 09/07); was 6.2 (01/06); was 6.3 (03/07 and 05/06); was 6.8 (03/06); was 6.1 (06/05) Although her a1c has been officially at target, she has evidence of poor control based on CGM tracings with significan t hyperglyce eulalio overnight along with several episodes of hypoglycem ia. CGM shows frequent (some prolonged) lows o/n. Need to address this first.- Decrease levemir from 7 to 5 (09/08); previously decreased from 10-> 8. - Review CGM in 4-6 weeks. (upload) at ENDO RN visit At one point, had been on NPH but she got switched to Tresiba when in rehab following ankle fx.May come back to this if frequent lows persist. EYES: No problems in past.NEURO : Feet good in pastRENAL: No microalbum in. Normotensi ve in pastCV: LDL= 58 (03/09) was 93 (09/07) was 78 (03/07); was 104on simva 10. Hypoglycemia [id number] E 16.2 Having frequent lows mostly overnight but also during day.Lower levemir 7 -> 5 (09/08)/Af ter reduce lows may need to consider increasing short acting for meals. Had low in office (03/09)- helped assess and treat. Very frequent (with several days/night s having prolonged time with low values).Hy poglycemia is a serious medical problem with consequenc es affecting her health. Nearly 12% (09/08 and 03/09); was 15% on CGM (09/07).Th david tend to occur frequently overnight but also can occur at other times during day.Goal is to decrease frequency and duration of lows. May help reduce rebound hyperglyce eulalio overnight. - Cut back levemir and try to have her use more short-acti ng with meals. There is a current and ongoing significan t concern for the this patient's risk for severe hypoglycem ia causing serious health consequenc es. Hypothyroidism 33348370 E03.9 On 175 mcg Synthroid TSH= 3.12 (03/09); was 6.81 (09/07); was13.9 (01/06); was 4.36 (03/07); was 3.76 (05/06); was 3.5 (06/05) Labs updated today (09/08) after visit.Chec k results and adjust dose prn.(Much better to use dose as one pill daily; has trouble with fractions of pills on different days) Overall: Monitor labs and adjust dose prn. Panic diso rder without agoraphobia 12375335 F41.0 Affects her ability to come to appointmen ts and adhere to dietary and lifestyle regimens.A lso has ADHD which interferes with following complex regimens. Obesity 096282949 E66.9 BMI up to 37 (09/08); 34 (03/09).P t. does not want to know weight Previously used Nutrasyste m with success. [id number] Benny Gunn MD Endocrino logy, [facility] [place] [address] [place] [address] 01/10/2024 14:04:42 01/11/2024 15:19:14 Uncontrolled type 1 diabetes mellitus [id number] E10.65 Labs updated today (09/08) after visit. A1c= getting today (09/08); was 6.3 (03/09 and 09/07); was 6.2 (01/06); was 6.3 (03/07 and 05/06); was 6.8 (03/06); was 6.1 (06/05) Although her a1c has been officially at target, she has evidence of poor control based on CGM tracings with significan t hyperglyce eulalio overnight along with several episodes of hypoglycem ia. CGM shows frequent (some prolonged) lows o/n. Need to address this first.- Decrease levemir from 7 to 5 (09/08); previously decreased from 10-> 8. - Review CGM in 4-6 weeks. (upload) at ENDO RN visit At one point, had been on NPH but she got switched to Tresiba when in rehab following ankle fx.May come back to this if frequent lows persist. EYES: No problems in past.NEURO : Feet good in pastRENAL: No microalbum in. Normotensi ve in pastCV: LDL= 58 (03/09) was 93 (09/07) was 78 (03/07); was 104on simva 10. RN/ VISIT DR GUNN IN TO SEE PT AND REVIEW CGM RESULTS VIA CGM AND DIABETES/I NSULIN MANGEMENT* *Entered for follow up from 09/08: Decrease levemir from 7 units to 5 units (10PM) to reduce lows. Then will want to see if highs persisting overnight. CHRIS RN 6 weeks CGM reveals : dates - 12/12/23 - 01/10/24Tim e active : 100%Ave BS -156Time in range, target range ( 70 -180) =56%Very High (>250) =12%High (181-250) =Low (54-69) =6%Very Low ( <54) =4% New insulin dosing :1.)- Novolog 5 - 10 units up to 5 times daily with meals and snacks2.)- Change to Lantus 5 units (may decrease to 4 units if still having lows) from Levemir -7 units - D/C levemir insurance preference 3.) - Discussed insuln pump options - T- slim, Omnipod, Ilet - Beta Bionic ( pt interested in Ilet- hand out given for pt to re search)4.) - Reviewed S/S hypoglycem ia - handout given, reviewed how/when to treat ? pt aware - drinks Leyda sun and repeats after 15 minutes if not going up. Advised protein follow up5.)- Labs todayNV with MD -04/10/24 - [facility] [place] - 2:00PM Hypoglycemia [id number] E 16.2 Having frequent lows mostly overnight but also during day.01/08: Changing levemir to lantus (insurance )- decrease dose. After reduce lows may need to consider increasing short acting for meals (mostly bkfst).Low s are very frequent (with several days/night s having prolonged time with low values).Hy poglycemia is a serious medical problem with consequenc es affecting her health. Nearly 10% (01/08); was 12% (09/08 and 03/09); was 15% on CGM (09/07).Th david tend to occur afternoon and evening and can extend overnight. Goal is to decrease frequency and duration of lows. May help reduce rebound hyperglyce eulalio overnight. Decrease dose of long-actin g. There is a current and ongoing significan t concern for the this patient's risk for severe hypoglycem ia causing serious health consequenc es. Panic diso rder without agoraphobia [id number] F41.0 Affects her ability to come to appointmen ts and adhere to dietary and lifestyle regimens.A lso has ADHD which interferes with following complex regimens. Obesity 146769401 E66.9 BMI up to 37 (09/08); 34 (03/09).P t. does not want to know weight Going back to Nutrasyste m (01/08); has used with success in past. [id number] Benny Gunn MD Endocrino logy, [facility] [address] [place] [phone] 07/24/2024 13:19:10 07/28/2024 13:22:31 Uncontrolled type 1 diabetes mellitus [id number] E10.65 Labs updated today (08/10). A1c= getting today (08/10); was 7.3 (09/08) was 6.3 (03/09 and 09/07); was 6.2 (01/06); was 6.3 (03/07 and 05/06); was 6.8 (03/06); was 6.1 (06/05) Has poor control based on swings in BG by meter08/10 : Meter unclear. Pt reports was 400 o/n. thinks took 8 units- woke up at 115. was 84 at office and then 46. Has not been using long-actin g recently (didn't think 5 units lantus was helping)On ly using short-acti n-8 AC (08/10); Hasn't been using Lantus. Try toujeo:Zak e Style strips #50. Hope to get to G7 eventually . right now G6 OK. Encourage G7.toujeo 6 units.ronel log as she has been doing for now.f/u brit- see how she's doing. At one point, had been on NPH but she got switched to Tresiba when in rehab following ankle fx. EYES: No problems in past.NEURO : Feet good in pastRENAL: No microalbum in. Normotensi ve in pastCV: LDL= 58 (03/09) was 93 (09/07) was 78 (03/07); was 104on simva 10. Hypoglycemia [id number] E 16.2 While at visit today.Help ed assess and treat. Also having lows at other times.Hypo glycemia is a serious medical problem with consequenc es affecting her health. In past, nearly 12% (09/08 and 03/09); was 15% on CGM (09/07).Th david tend to occur frequently overnight but also can occur at other times during day.Goal is to decrease frequency and duration of lows. May help reduce rebound hyperglyce eulalio overnight. There is a current and ongoing significan t concern for the this patient's risk for severe hypoglycem ia causing serious health consequenc es. Hypothyroidism [id number] E03.9 On 175 mcg Synthroid TSH= 9.77 (09/08) was 3.12 (03/09); was 6.81 (09/07); was13.9 (01/06); was 4.36 (03/07); was 3.76 (05/06); was 3.5 (06/05) Labs updated today (08/10) after visit.Chec k results and adjust dose prn.(Much better to use dose as one pill daily; has trouble with fractions of pills on different days) Overall: Monitor labs and adjust dose prn. Panic diso rder without agoraphobia [id number] F41.0 Affects her ability to come to appointmen ts and adhere to dietary and lifestyle regimens.A lso has ADHD which interferes with following complex regimens. Obesity [id number] E66.9 BMI over 35 Pt. does not want to know weight Previously used Nutrasyste m with success. Health Concerns Section Related Observation LastModified by Organization Detai ls LastModified Time None Recorded Concern Status LastModified by Organization Details LastModified Time None Recorded Advance Directives Directive None Recorded Payers Encounter Date Sequence Insurance Name Policy Number Policy Bourne Covered Member ID Bourne Member ID Guarantor Name 09/07/2022 2 [place] [employer] Cordelia Leelee Mullins [id number] Cordelia Mullins 09/07/2022 2 [place] [facility] Cordelia Mullins [id number] Cordelia Mullins 02/15/2023 2 [place] [facility] Cordelia Mullins [id number] Cordelia Mullins 09/13/2023 2 [place] [facility] Cordelia Mullins [id number] Cordelia Mullins 09/13/2023 1 MEDICARE B-[place]: [facility] Cordelia Mullins [id number] Cordelia Mullins 01/10/2024 2 [place] [facility] Cordelia Mullins [id number] Cordelia Mullins 01/10/2024 1 MEDICARE B-[place]: [facility] Cordelia Mullins [id number] Cordelia Mullins 07/24/2024 2 [place] [facility] Cordelia Mullins [id number] Cordelia Mullins 07/24/2024 1 MEDICARE B-[place]: [facility] [employer] Cordelia Mullins [id number] Cordelia Mullins Notes Date Note Type Note Provider Name and Address Organization Details Recorded Time 09/07/2022 text/html DiabetesReported bypatient.Labs:last Hemoglobin A1C: (6.2 (01/06); was 6.3 (03/07 and 05/06); was 6.8; was 6.1 (06/05); was 6.3); microalbumin/creatinin e ratio: 2021 normal; serum creatinine: normal; Triglycerides at goal; HDL at goal Diabetes Medications:aspart; LEVEMIR (09/07): 11 units at HS. In past, was on TOUJEO: Novolog: about 5-6 units AC (09/07). Was 5-9; was 4-6; was 5-8) units AC and also at 3-4AM. Renal/HTN Medications:NO RENAL/HTN MEDS Lipid Medications:simvastati n (10mg takes in AM.); trouble remembering- easier to take in AM. (change to rosuva 5 mg). Associated Symptoms:no increased urinary frequency; no polyuria; no nocturia; no burning or discomfort with urination; no foul odor or discharge; no polydypsia; no blurred vision (cheaters.); no weight gain;weight loss ( lbs)(201 from 225 - lost after fx and back at parents' house.); Has done [employer] in past- helped when very adherent. Had seen Salma Crain (CASEY) and Julee SIDHU for support. Cardiac / Eye / Podiatric / Renal / Vascular Symptomsno coronary artery disease; no retinopathy (Has f/u planned leona Schmitt.- told everything looked great .); no numbness of feet; no kidney disease; no neuropathy Hypoglycemia Symptomsfrequency of hypoglycemic episodesdaily (Maybe 5/7. Often if over boluses for meals. Not having many o/n.); Feels hungry when hypoglycemic (Also feels irritable.); Shakey when hypoglycemic (less than in past.); Angry/Khan when low.Notes:Novolog dosing: Got switched to Novolin (?in hospital?) but started back on Levemir (previously on Tresiba). LIPIDS:01/06: 120-57-06-1016/: 841-88-68-7805/06: 166/62/73/815/: 180/64/60/107 ThyroidReported bypatient.Previous Evaluation:TSH: (13.9 (01/06); was 4.36 (03/07); was 3.76 (05/06); was 3.5 (06/05); was 2.45;) Treatment:synthroid, dose: 175 mcg (daily- had trouble remembering only half pill once a week.); Takes in AM. Has coffee and then takes pill. Hard for her to keep track of meds. Work is at [employer]. 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 Neurological:no tremor;anxiety(chronic as part of her depression is. 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 NAILS: Never been good. PCP - CichoJameel: Keshia: upcoming in 11/09. Follow-Up: obesityFollow-Up: type 1 diabetes mellitus uncontrolledFollow-Up: hypothyroidismLV on 09/06Last labs on 12/2021 A1C- 6.2 PT just had lab work done before appt.Labs cuedChecks blood sugars uses dexcom will add to chartSees DM educatorPT FX right ankle in 3 places in February 2022. Pt had surgery for and has screw and john in it.Pt unsure if should take the levemir or the Novolin. ROS:No fevers or chills.No severe h/a.No SOB.No COVID.No n/v or abdominal pain.No muscle pains. No cramping.No dizziness with standing in AM. Occ off balance- fell OOB and ankle fx.No bruises or rashes or itching. Left wrist fx in 20s. Benny Gunn MD [address] [place] [address], [phone], [facility] 09/07/2022 22:15:36 02/15/2023 text/html DiabetesReported bypatient.Labs:last Hemoglobin A1C: (6.3 (09/07); was 6.2 (01/06); was 6.3 (03/07 and 05/06); was 6.8; was 6.1 (06/05); was 6.3); microalbumin/creatinin e ratio: 2021 normal; serum creatinine: normal; Triglycerides at goal; HDL at goal Diabetes Medications:aspart; LEVEMIR (03/09)- 10 units. was 11 units (09/07): In past, was on TOUJEO: Novolog: about 5-8 units AC (03/09); was 5-6 (09/07). Was 5-9; was 4-6; was 5-8) units AC and also at 3-4AM. Renal/HTN Medications:NO RENAL/HTN MEDS Lipid Medications:simvastati n (10mg at HS.) Associated Symptoms:no increased urinary frequency; no polyuria; no nocturia; no burning or discomfort with urination; no foul odor or discharge; no polydypsia; no blurred vision (last eye visit 11/09. readers more.);weight gain ( lbs)(2022); weight; 208 (03/09); was 201 (09/07); lost after fx (2021) and back at parents' house Has done [employer] in past- helped when very adherent. Had seen Salma Crain (RD) and Julee SIDHU for support. Cardiac / Eye / Podiatric / Renal / Vascular Symptomsno coronary artery disease; no retinopathy (2022); no numbness of feet; no kidney disease; no neuropathy Hypoglycemia Symptomsfrequency of hypoglycemic episodesdaily (No obvious time frame.); Feels hungry when hypoglycemic (Also feels irritable.); Shakey when hypoglycemic (less than in past.); Angry/Khan when low. 03/09: BG= 61 in office. pt. given juice/crackers.Notes:N o sensors past month (03/09)- problem with shipping. Novolog dosing:Got switched to Novolin (?in hospital?) but started back on Levemir (previously on Tresiba). LIPIDS:09/07: 523-25-23-93;01/06: 266-04-92-1016/: 214-43-81-788/: 166/62/73/815/: 180/64/60/107 ThyroidReported bypatient.Previous Evaluation:TSH: (6.81 (09/07); was13.90 (01/06); was 4.36 (03/07); was 3.76 (05/06); was 3.5 (06/05); was 2.45;); free T4: (1.11 (09/07); was 1.16 (01/06)) Treatment:synthroid, dose: 175 mcg (was daily- had trouble remembering only half pill once a week.); Takes in AM. Has coffee and then takes pill. Hard for her to keep track of meds. Work is at [employer]. 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 Neurological:no tremor (with anxiety);anxiety(chron ic as part of her depression is. Worse with losing job (closed). 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 PCP - Yann: Keshia: upcoming in 11/09. Follow-Up: hypothyroidismFollow-U p: type 1 diabetes mellitus uncontrolledFollow-Up: obesityLV on 09/07Last labs on 09/07 A1C- 6.1- going to have done today.Lab orders in place until 09/08Checks blood sugars uses dexcom will add to chart and also meter will to chart PAST MEDICAL Hx (updated):- ADD.- Ankle fx. SOCIAL Hx (updated):Was at [facility] but closed.Cut off from medicare/social security.New job will be starting [employer] in [place] (28 h/week including 2 full days- hard for her). FAMILY Hx (updated):Family OK ROS:No fevers or chills.No severe h/a.No SOB.COVID 10/09- mild.No n/v or abdominal pain.No muscle pains. No cramping.No dizziness with standing in AM. Occ off balance- fell OOB and ankle fx Left wrist fx in 20s. Benny Gunn MD [address] [place] [address], [phone], [facility] 03/13/2023 09:15:19 09/13/2023 text/html DiabetesReported bypatient.Labs:last Hemoglobin A1C: (6.3 (03/09 and 09/07); was 6.2 (01/06); was 6.3 (03/07 and 05/06); was 6.8; was 6.1 (06/05); was 6.3); microalbumin/creatinin e ratio: 2022 normal; serum creatinine: 2022 normal Diabetes Medications:aspart; LEVEMIR: 7 units (HS in 09/08); was 10 units (03/09). was 11 units (09/07): In past, was on TOUJEO: Novolog: about 5-8 units AC (since 03/09); was 5-6 (09/07). Was 5-9; was 4-6; was 5-8) units AC and also at 3-4AM. Renal/HTN Medications:NO RENAL/HTN MEDS Lipid Medications:simvastati n (10mg at HS.) Associated Symptoms:no increased urinary frequency; no polyuria; no nocturia; no burning or discomfort with urination; no foul odor or discharge; no polydypsia; no blurred vision (last eye visit 11/09. readers more.);weight gain ( lbs)(2022); weight: 230 (office 09/08- doesn't want to know); was 208 (03/09); was 201 (09/07); lost after fx (2021) and back at parents' house Has done [employer] in past- helped when very adherent. Cardiac / Eye / Podiatric / Renal / Vascular Symptomsno coronary artery disease; no retinopathy (2022); no numbness of feet; no kidney disease; no neuropathy Hypoglycemia Symptomsfrequency of hypoglycemic episodesdaily (Thinks more likely in afternoon.); Feels hungry when hypoglycemic (Also feels tired and yawns. Can also be irritable.); Shakey when hypoglycemic (less than in past.); Angry/Khan when low.Notes:Novolog dosing:Got switched to Novolin (?in hospital?) but started back on Levemir (previously on Tresiba). LIPIDS:03/09: 157//22: 410-75-93-93;01/06: 652-04-77-1016/: 108-41-45-7805/06: 166/62/73/815: 180/64/60/107 09/08: Notes bloating past 2.5 weeks.Passing gas frequently. Some constipation (even with metamucil). ThyroidReported bypatient.Previous Evaluation:TSH: (3.12 (03/09); was 6.81 (09/07); was13.90 (01/06); was 4.36 (03/07); was 3.76 (05/06); was 3.5 (06/05); was 2.45;); free T4: (1.08 (03/09): was 1.11 (09/07); was 1.16 (01/06)) Treatment:synthroid, dose: 175 mcg (was daily- had trouble remembering only half pill once a week.); Takes in AM. Has coffee/milk and then takes pill. Work is at [employer]. 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 Neurological:no tremor (with anxiety);anxiety(chron ic as part of her depression is. Worse with losing job (closed). 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 PCP - Manny valle)EYES: [place]: upcoming in 11/09. Follow-Up: hypothyroidismFollow-U p: type 1 diabetes mellitus uncontrolledFollow-Up: obesityLV on 03/09Last labs on 03/09 A1C-6.3 going today after appt.Lab orders in place until 09/08labs cuedChecks blood sugars uses dexcom will add to chart and uses meter will add to chartPT states stomach has beens gassy and bloated PAST MEDICAL Hx (updated):- ADD.- Ankle fx.09/08: No big chances. SOCIAL Hx (updated):No EtOH since 2004 Was at [facility] but closed.Cut off from Medicare/social security.New job will be starting [employer] in [place] (28 h/week including 2 full days- hard for her).09/08: Not exercising. 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 FAMILY Hx (updated):Family OK; parents and one brotherNO KIDS ROS:No fevers or chills.No severe h/a.No SOB.COVID 10/09- mild.No n/v or abdominal pain.No muscle pains. No cramping.No dizziness with standing in AM. Occ off balance- fell OOB and ankle fx Left wrist fx in 20s. Benny Gunn MD [address] [place] [address], [phone], [facility] 09/15/2023 12:50:09 01/10/2024 text/html Pt concerns for visit with nursing today are -Here for CGM download, interpretation by Dr Gunn and insulin adjustment. Last HgbA1c - ( was )02/15/2023 6.3 %09/13/2023 7.3 % Diabetic medications and current doses:1.)- Novolog 5 - 10 units up to 5 times daily with meals and snacks2.)-Needs Change to Lantus d/t insurance) from Levemir d/t insurance - takes 7 units current dose Correction factor : >180 2 hr post meal 2 units Taking insulin with snacks ? Yes Meal times/ typical meal includes: nutra system diet plan and pre made meals and snacks Breakfast :10 itzel - breakfast bar, tea ( SF )Snack : cheese stick or fruit cupLunch: 12-1 - pre made meal - protein and veggiesSnack: 3 is h - cheese stick or fruit cupDinner: 5- 6ish - protein and low carb starch and veggieSnack: 8 itzel - mini dessertHS : 11:30 - 2 AM Exercise routine : no routine Recent illness: none CGM reveals :Time active :Ave BS -156Time in range, target range ( 70 -180) =56%Very High (>250) =12%High (181-250) =Low (54-69) =6%Very Low ( <54) =4% Plan:FBS goal - 80-1302 hr PP goal - 180 - 200DR GUNN IN TO SEE PT AND REVIEW CGM RESULTS VIA CGM AND DIABETES/INSULIN MANGEMENT New insulin dosing :Diabetic medications and current doses:1.)- Novolog 5 - 10 units up to 5 times daily with meals and snacks2.)- Change to Lantus 5 units (may decrease to 4 units if still lows) from Levemir d/t insurance - D/C 7 units levemir3.) - Discussed insuln pump options - T- slim, Omnipod, Ilet - Beta Bionic ( pt interested in Ilet- hand out given for pt to re search)Reviewed S/S hypoglycemia - handout given, reviewed how/when to treat ? pt aware - drinks Leyda sun and repeats after 15 minutes if not going up. Advised protein follow up NV with MD -04/10/24 - [facility] [place] - 2:00PM NV with Nursing - prn RX's sent to pharmacy - If none - refills needed on any meds ? Novolog pens, Lantus pen, pen needles, test strips, Dexcom G 7 sensors and ribbon inker. ( pt prefers use of ribbon inker -d/t older model phone) Lab orders - in place until 08/2024 DME forms completed? n/a Nurse : LIAN Allan MD [address] [place] [address], [phone], [facility] 01/11/2024 12:01:59 07/24/2024 text/html DiabetesReported bypatient.Labs:last Hemoglobin A1C: (7.3 (09/08) was 6.3 (03/09 and 09/07); was 6.2 (01/06); was 6.3 (03/07 and 05/06); was 6.8; was 6.1 (06/05); was 6.3); microalbumin/creatinin e ratio: 2022 normal; serum creatinine: 2022 normal; . Diabetes Medications:Short-acti ng insulins: Novolog; Long-acting insulins: Lantus (5 units at HS; decreased because not seeing any impact.); In past, was on LEVEMIR: 7 units (HS in 09/08); was 10 units (03/09). was 11 units (09/07): In past, was on TOUJEO: Novolo-8 AC (08/10); was 5-8 units AC (since 03/09); was 5-6 (09/07). Was 5-9; was 4-6; was 5-8) units AC and also at 3-4AM. Renal/Hypertension (HTN) MedsNO RENAL/HTN MEDS Lipid Medications:Statins: Simvastatin (10mg); Lane-3 Fatty Acids: Generic (OTC) Associated Symptoms:no increased urinary frequency; no polyuria; no nocturia; no burning or discomfort with urination; no foul odor or discharge;polydypsia(n o change- high or low.); no blurred vision (11/10.);barriers to self management(anxiety); WEIGHT (home): 220 (08/10); was 230 (office 09/08- doesn't want to know); was 208 (03/09); was 201 (09/07); lost after fx (2021) and back at parents' house Has done [employer] in past- helped when very adherent. Cardiac / Eye / Podiatric / Renal / Vascular Symptomsno coronary artery disease; no retinopathy (2023); no numbness of feet; no kidney disease; no neuropathy Hypoglycemia Symptomsfrequency of hypoglycemic episodesdaily (Different times of day- trouble because no CGM and no meter supplies. Evenings more likely.); Feels hungry when hypoglycemic (Also feels tired and yawns. Can also be irritable.); Shaky when hypoglycemic (less than in past.); Angry/Khan when low.Notes:Novolog dosin-8 with meals. BG are 400 in AMFeels like having some trouble breathing- very dry. Uses mom's inhalers prn. They help. METER:some lows in evening.Values not tied to clear time (clock off).General range is 30s to 400s. LIPIDS:09/08: 195/61/93/8003/09: 157//22: 351-33-82-93;01/06: 983-79-85-: 932-74-48-7805/06: 166/62/73/815: 180/64/60/107 09/08: Notes bloating past 2.5 weeks.Passing gas frequently. Some constipation (even with metamucil). ThyroidReported bypatient.Previous Evaluation:TSH: (9.77 (09/08) was 3.12 (03/09); was 6.81 (09/07); was13.90 (01/06); was 4.36 (03/07); was 3.76 (05/06); was 3.5 (06/05); was 2.45;); free T4: (0.9 (09/08) was 1.08 (03/09): was 1.11 (09/07); was 1.16 (01/06)) Treatment:synthroid, dose: 175 mcg, frequency: (daily (08/10)- was less before- had trouble remembering only half pill once a week.); Takes in AM. Waits 30 minutes before coffee/milk. Constitutional:no cold intolerance; no heat intolerance Neck:no difficulty swallowing; no masses Heart:no rapid heart rate; no palpitations; no fluttering; no chest pain; no tightness or pressure GI:no diarrhea;constipation( chronic; takes metamucil daily.); . :normal menstrual periods; Monthly - shorter but not as light. PMS is worse than in past. Neurological:no tremor (when low or nervous.);anxiety(salvager blaire and worse lately (08/10). Driving very hard. Also depression. 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 PCP - Manny valle)EYES: [place]ulseber/24. Follow-Up: hypothyroidismFollow-U p: uncontrolled type 1 diabetes mellitusFollow-Up: obesityLV on 09/08Last labs on 09/08 A1C-7.3 requested newer labs and none done pre lab lennox Pt states just had done todaylabs cuedLAst nurse visit 01/08Checks blood sugars uses dexcom will add to chart has not used the past month due to insurance and uses meter will try to add to chart -about 3 times daily, PTs time offPt took Blod sugar was 46 drink a juice boxPT has not been taking the lantus daily for about a month PAST MEDICAL Hx (updated):- ADD.- Ankle fx.09/08: No big changes.08/10: No changes. No Dexcom past couple of months. Insurance won't cover freestyle. SOCIAL Hx (updated):No EtOH since 2004 Was at [facility] but closed.Cut off from Medicare/social security.New job will be starting [employer] in [place] (28 h/week including 2 full days- hard for her).09/08: Not exercising. 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 Distressed because of high BG (400 in AM)*Blood sugar low at visit- eating crackers.* FAMILY Hx (updated):Family OK; parents and one brotherNO KIDS 08/10: Some bruising at sock line. ROS:No fevers or chills.No severe h/a.Some SOB mostly in AM (when BG high)- very dry and feels trouble breathing.COVID 10/09- mild.No n/v or abdominal pain.No muscle pains. No cramping.No dizziness with standing in AM. occ wobbly. Left wrist fx in 20s. Benny Gunn MD [address] [place] [address], [phone], [facility] 07/28/2024 10:09:12 OBGyn Episode No OBEpisode recorded.
== END 2024-11-12 14:10 | disposition home or self-care (01) ==
PROVIDERS: PCP Internal Medicine; Visit Provider Internal Medicine
DX: Z00.00 Encounter for general adult medical examination without abnormal findings (principal); E10.9 Type 1 diabetes mellitus without complications; F32.9 Major depressive disorder, single episode, unspecified

== ENCOUNTER → 2024-11-12 12:28 | Outpatient (BNVA) | payer MEDICARE, MEDICAID, SELFPAY | PROVIDERS: PCP Internal Medicine; Visit Provider Internal Medicine | DX: Z00.00 Encounter for general adult medical examination without abnormal findings (principal); E10.9 Type 1 diabetes mellitus without complications; F32.9 Major depressive disorder, single episode, unspecified | CPT/HCPCS: 96127; 99396 ==